=== PATIENT | female | born 1975 | race Caucasian/White ===

== ENCOUNTER 2021-01-11 16:39 | Outpatient (CLI) | payer BC, SELFPAY ==
[2021-01-11 17:23] LABS: Beta HCG Quantitative < 2.39 mIU/ML
[2021-01-11 17:37] LABS: Thyroid Stimulating Hormone 0.799 uIU/mL (0.465-4.680)
[2021-01-11 17:40] LABS: Free T4 Free Thyroxine 1.25 ng/mL (0.78-2.19)
[2021-01-15 07:47] LABS: Prolactin 13.6 ng/mL (***)
== END 2021-01-11 16:40 | disposition home or self-care (01) ==
PROVIDERS: Visit Provider Nurse Practitioner
DX: N93.8 Other specified abnormal uterine and vaginal bleeding (principal)
CPT/HCPCS: 36415; 84146; 84439; 84443; 84702

== ENCOUNTER → 2021-01-11 16:59 | Outpatient (CLI) | payer BC, SELFPAY ==
--- NOTE | ~2021-01-11 | US_ITS ---
EXAMINATION: US transvaginal DATE: 01/11/2021 17:26 INDICATION: Abnormal uterine bleeding TECHNIQUE: Multiple endovaginal sonographic images of the pelvis were obtained. COMPARISON: None. FINDINGS: The uterus measures 6 x 4.5 x 5.2 cm. There is a 2.3 cm isoechoic lesion in the posterior u terine body which has the appearance of an intramural fibroid. The endometrial complex measures 4 mm. The ovaries are not visualized however no adnexal abnormality is seen. There is no free fluid in the pelvis. IMPRESSION: 1. No sonographic correlate for the patient's symptoms. Reviewed, dictated and finalized at location A.
== END ==
PROVIDERS: Visit Provider Nurse Practitioner
DX: N93.8 Other specified abnormal uterine and vaginal bleeding (principal)
CPT/HCPCS: 76830

== ENCOUNTER → 2021-09-30 16:23 | Outpatient (CLI) | payer BC, SELFPAY ==
--- NOTE | ~2021-09-30 | XR_ITS ---
EXAM: XR abdomen/kub 1V DATE: 10/01/2021 11:38 HISTORY: Flank pain . COMPARISON: None available. FINDINGS: Clear lung bases. Normal bowel gas pattern. No organomegaly. Pelvic phleboliths. Regional bones and soft tissues normal for age. IMPRESSION: No radiographic evidence of obstruction or ileus. Reviewed, dictated and finalized at location K.
== END ==
PROVIDERS: PCP Nurse Practitioner Family; Visit Provider Nurse Practitioner Family
DX: R10.9 Unspecified abdominal pain (principal)
CPT/HCPCS: 74018

== ENCOUNTER 2022-06-26 16:28 | Emergency (ER) | payer BC, SELFPAY ==
[2022-06-26 16:40] VITALS: BP 181/97; PULSE 83; RESP 16; TEMP 36.2; O2SAT 100
[2022-06-26 16:42] VITALS: BP 181/97; PULSE 83; RESP 16; TEMP 36.2; O2SAT 100
--- NOTE | 2022-06-26 16:54 | ED.EAR ---
HPI - Ear Problem General Chief complaint: Ear Stated complaint: bilateral ear pain Source: patient Mode of arrival: ambulatory Limitations: no limitations History of Present Illness HPI Narrative: 47-year-old female presents to [facility] with complaints of bilateral ear pain, swelling to bilateral preauricular regions intermittently for the past few days. Patient reports that she finished a round of amoxicillin and Medrol Dosepak approximately for 3-5 days ago from her primary care provider for sinus infection. Patient reports that she has long history of ear issues and sinus infections and reports that she had sinus surgery in the past. Patient reports that she is leaving to go out of town in next few days and wanted make sure everything was okay. Patient denies fever, body aches, chills, nausea, vomiting, diarrhea, weight loss, night sweats. Patient reports that she has seen ENT in the past but is not currently established local ENT provider MD Complaint: ear pain Location: bilateral Duration: constant Severity: mild Relieving factors: nothing Exacerbating factors: nothing Treatment prior to arrival: none Related Data Home Medications Medication Instructions Recorded Confirmed atorvastatin 10 mg tablet 10 mg PO DAILY 06/26/22 06/26/22 cyclobenzaprine 10 mg tablet 10 mg PO DAILY 06/26/22 06/26/22 lisinopril 10 mg tablet 10 mg PO DAILY 06/26/22 06/26/22 metformin 500 mg tablet 500 mg PO DAILY 06/26/22 06/26/22 norethindrone acetate 1.5 1 tablet PO DAILY 06/26/22 06/26/22 mg-ethinyl estradiol 30 mcg tablet (Junel) oxybutynin chloride 5 mg tablet 5 mg PO DAILY 06/26/22 06/26/22 sertraline 100 mg tablet 100 mg PO DAILY 06/26/22 06/26/22 zolpidem 12.5 mg tablet,extended 12.5 mg PO DAILY 06/26/22 06/26/22 release,multiphase Allergies Allergy/AdvReac Type Severity Reaction Status Date / Time No Known Allergies Allergy Verified 06/26/22 16:40 Review of Systems Constitutional: Constitutional: Denies chills, Denies fatigue, Denies fever(s) and Denies weakness ENT: Denies vertigo, Denies dizziness, Denies epistaxis and Denies nasal congestion Comments: Bilateral ear pain Cardiovascular: Cardiovascular: Denies chest pain Respiratory: Respiratory: Denies chest congestion, Denies cough, Denies dyspnea and Denies wheezing Gastrointestinal: Gastrointestinal: Denies diarrhea, Denies nausea and Denies vomiting Genitourinary: Genitourinary: Denies hematuria and Denies nocturia Musculoskeletal: Musculoskeletal: Denies arthralgias and Denies joint swelling Integumentary/Breasts: Skin/Breast: Denies rash Neurologic: Denies vertigo, Denies dizziness, Denies syncope and Denies headache(s) PMFSH Comments At time of signature, I agree with nursing past medical, surgical, social and family history. There is no relevant family history pertinent to the presenting complaint. Exam Const: General: healthy appearing and no acute distress Nutritional Appearance: well nourished Orientation/consciousness: patient oriented x3 Limitations: no limitations HENMT: Head: normal to inspection Ears: external ears normal and TM's normal bilaterally Face/Nose/Sinus: Normal external nose present and Normal nares present Face and sinus: normal facial exam Mouth: Yes Normal oral and palatal mucosa present and Yes moist mucous membranes Teeth and gingiva: dentition normal Throat: posterior oropharynx normal and uvula midline Other: Mild swelling noted to bilateral preauricular regions. There is no obvious lymphadenopathy noted Eyes: Conjunctivae: conjunctivae normal Neck: Neck: normal visual inspection, no lymphadenopathy and no meningeal signs Resp: Effort & Inspection: normal respiratory effort, not labored and no retractions Auscultation: clear to auscultation bilaterally, no crackles, no rales, no rhonchi and no wheezes Cardio: Rate: regular rate Rhythm: regular rhythm Heart sounds: no murmurs Skin: General skin e
== END 2022-06-26 17:13 | disposition home or self-care (01) ==
PROVIDERS: Emergency Provider Nurse Practitioner Family; PCP Family Medicine
DX: R60.9 Edema, unspecified (principal)
CPT/HCPCS: 99213; G0463

== ENCOUNTER 2022-08-11 10:28 | Outpatient (CLI) | payer BC, SELFPAY ==
--- NOTE | ~2022-08-11 | US_ITS ---
EXAMINATION: US soft tissue head and neck DATE: 08/11/2022 10:53 INDICATION: Cervical lymphadenopathy. TECHNIQUE: Multiple grayscale and Doppler ultrasound images of the neck were obtained. COMPARISON: None FINDINGS: There is a mildly enlarged left submandibular node measuring 2.3 x 1.2 cm. There are normal sized lymph nodes in right neck. IMPRESSION: 1. Mildly enlarged left submandibular lymph node, most likely reactive as an isolated finding. Reviewed, dictated and finalized at location E. IMPRESSION: 1. Mildly enlarged left submandibular lymph node, most likely reactive as an is olated finding.
== END 2022-08-11 10:29 ==
PROVIDERS: PCP Nurse Practitioner Family; Visit Provider Nurse Practitioner Family
DX: R59.0 Localized enlarged lymph nodes (principal)
CPT/HCPCS: 76536

== ENCOUNTER → 2022-08-17 12:44 | Outpatient (CLI) | payer BC, SELFPAY ==
--- NOTE | ~2022-08-17 | CT_ITS ---
CT scan of the Neck Technique: 2.5 mm axial scans were obtained through the neck after intravenous administration of 75 c c Omnipaque 350. Coronal and sagittal reconstructions of the neck were obtained. Dose reduction techn ique was used on this scan by utilizing automated exposure control and iterative reconstruction techn ique. The dose-length product (DLP) was 409.06 mGy-cm. Clinical History: Submandibular lymphadenopathy Findings: There are mildly prominent bilateral cervical lymph nodes, predominantly at level 2. Shotty bilateral submandibular lymph nodes are present, not enlarged by size criteria. Parapharyngeal spaces appear n ormal bilaterally. The parotid and submandibular glands appear normal. The pharyngeal mucosal spaces appear normal. No soft tissue masses are seen in the neck. The thyroid gland appears normal. Images of the lung apices reveal no abnormalities. There is mild bi lateral maxillary and bilateral ethmoid sinus disease. There is retention cyst or polyp in the left s phenoid sinus. Impression: Mildly prominent lymph nodes bilaterally in the neck, as detailed above. This could reflect nonspecif ic lymphadenitis or other reactive lymph nodes. Mild sinus disease, as above. Reviewed, dictated and finalized at location M. Impression: Mildly prominent lymph nodes bilaterally in the neck, as detailed above. This c ould reflect nonspecific lymphadenitis or other reactive lymph nodes. Mild sinus disease, as above.
[2022-08-17 13:58] LABS: Estimated Glomerular Filt Rate > 60
== END ==
PROVIDERS: PCP Nurse Practitioner Family; Visit Provider Nurse Practitioner Family
DX: R59.0 Localized enlarged lymph nodes (principal); J32.9 Chronic sinusitis, unspecified
CPT/HCPCS: 70491; Q9967

== ENCOUNTER 2022-09-21 10:20 | Outpatient (CLI) | payer BC, SELFPAY ==
--- NOTE | ~2022-09-21 | US_ITS ---
Procedure: Duplex Doppler examination of the bilateral carotids. Indication: Carotid bruit Technique: Real time, color-flow and pulse wave Doppler examination of the bilateral carotids was performed. Findings: Tovar scale ultrasonography of the right neck demonstrated no significant plaque. There was demonstrat ion of normal color-flow and Doppler waveforms within the right common, internal and external carotid arteries. The peak systolic velocities in the right common, internal and external carotid arteries w ere demonstrated to be 71 cm/sec, 79 cm/sec and 118 cm/sec respectively. The right ICA/CCA ratio was 0.8.The proximal right internal carotid artery demonstrates 0% stenosis relative to the normal distal artery lumen diameter. Tovar scale sonography of the left neck demonstrated no significant plaque. There was demonstration of normal color-flow and wave forms within the left common, internal and external carotid arteries. The peak systolic velocities in the left common, internal and external carotid arteries were demonstrate d to be 97cm/sec, 50 cm/sec and 91 cm/sec respectively. The left ICA/CCA ratio was 0.8. The proximal left internal carotid artery demonstrates 0% stenosis relative to the normal distal artery lumen diam eter. There was antegrade flow demonstrated in the bilateral vertebral arteries. Impression: No hemodynamically significant stenosis of the bilateral internal carotid arteries. Antegrade flow in the bilateral vertebral arteries. Note: The methodology used is an indirect measurement validated against a direct method (such as the NASCET criteria) that compares diameters at the stenosis to the distal ICA. Reviewed, dictated and finalized at location . Impression: No hemodynamically significant stenosis of the bilateral internal carotid arter ies. Antegrade flow in the bilateral vertebral arteries. Note: The methodology used is an indirect measurement validated against a direct meth od (such as the NASCET criteria) that compares diameters at the stenosis to the distal ICA.
--- NOTE | ~2022-09-21 | XR_ITS ---
XR chest 2V DATE: 09/21/2022 10:52 INDICATION: Right carotid bruit. Palpable thyroid gland. TECHNIQUE: 2 views COMPARISON: None FINDINGS: Normal heart size. No hilar or mediastinal enlargement. No pulmonary infiltrate or consolid ation, pleural effusion or pulmonary vascular congestion or pneumothorax. Included skeletal structures are unremarkable. IMPRESSION: No active cardiopulmonary disease Reviewed, dictated and finalized at location L.
--- NOTE | ~2022-09-21 | US_ITS ---
Thyroid ultrasound. Clinical History: Palpable thyroid gland, thyroid nodule Findings: Real-time sonography of the thyroid gland was performed. The right lobe measures 4.4 x 1.5 x 1.4 cm. The left lobe measures 4.1 x 1.2 x 1.3 cm. The isthmus is 3 mm in AP diameter. There is a 5 mm hypoechoic nodule in the right upper pole. Impression: Subcentimeter right thyroid nodule, as above, for which no further follow-up is required.. Reviewed, dictated and finalized at location M. Impression: Subcentimeter right thyroid nodule, as above, for which no further follow-up is required..
== END 2022-09-21 10:21 ==
PROVIDERS: PCP Internal Medicine; Visit Provider Internal Medicine
DX: R09.89 Other specified symptoms and signs involving the circulatory and respiratory systems (principal); E04.1 Nontoxic single thyroid nodule
CPT/HCPCS: 71046; 76536; 93880

== ENCOUNTER 2022-11-16 14:35 | Outpatient (CLI) | payer BC, SELFPAY ==
--- NOTE | 2022-11-16 | ECHO_ITS ---
Patient Info Name: Traci Casas Age: 47 years : 1975 Gender: Female Ht: 64 in Wt: 215 lbs BSA: 2.14 m2 HR: 79 bpm BP: 171 / 105 mmHg Technical Quality: Fair Exam Date: 11/16/2022 3:08 PM Exam Location: [facility] Patient Status: Outpatient Admit Date: 11/16/2022 Staff Ordering Physician: PatricaJared MD Undercover Cop: Marilee Gurrola RDCS Attending Provider: TejasJared MD Exam Type: CA echo doppler color flow Study Info Indications - COUGH MURMUR Complete two-dimensional, color flow and Doppler transthoracic echocardiogram is performed. Summary 1. Complete two-dimensional, color flow and Doppler transthoracic echocardiogram is performed. 2. Left ventricular chamber dimension is normal. 3. Left ventricular systolic function is normal, estimated at 65-70%. 4. The left ventricular diastolic function is grade I diastolic dysfunction. 5. E/e' 7 is not elevated. 6. There is trace aortic valve regurgitation. 7. There is trace mitral valve regurgitation. 8. There is trace tricuspid valve regurgitation. 9. No pulmonary hypertension, estimated pulmonary arterial systolic pressure is 37 mmHg. Left Ventricle E/e' 7 is not elevated. Left ventricular chamber dimension is normal. Left ventricular systolic function is normal, estimated at 65-70%. The left ventricular diastolic function is grade I diastolic dysfunction. Right Ventricle Right ventricular chamber dimension is normal. Right ventricular systolic function is normal. Left Atria Left atrial chamber dimension is normal. Right Atria Right atrial chamber dimension is normal. Aortic Valve The aortic valve is trileaflet. There is no aortic valve stenosis. There is trace aortic valve regurgitation. Pulmonic Valve There is no pulmonic regurgitation. Mitral Valve There is no mitral valve stenosis. There is trace mitral valve regurgitation. Tricuspid Valve There is trace tricuspid valve regurgitation. No pulmonary hypertension, estimated pulmonary arterial systolic pressure is 37 mmHg. Pericardium/Pleural There is no pericardial effusion. Inferior Vena Cava Normal inferior vena cava with >50% collapse upon inspiration consistent with normal right atrial pressure, 5 mmHg. Aorta The aortic root size at the sinus of Valsalva is normal. Left Ventricular Outflow Tract Name Value Normal LVOT 2D LVOT Diameter 2.0 cm LVOT Doppler LVOT Peak Gradient 7 mmHg LVOT Mean Gradient 4 mmHg LVOT VTI 28 cm LVOT VTI/AV VTI Ratio 1.0 LVOT Stroke Volume 87 ml LVOT CO 18.6 l/min LVOT CI 8.7 l/min/m2 Pulmonic Valve Name Value Normal RVOT Doppler RVOT Peak Gradient 3 mmHg PV Doppler
== END 2022-11-16 14:36 | disposition home or self-care (01) ==
PROVIDERS: PCP Internal Medicine; Visit Provider Internal Medicine
DX: R05.3 Chronic cough (principal); R06.2 Wheezing; R01.1 Cardiac murmur, unspecified
CPT/HCPCS: 93306

== ENCOUNTER 2023-01-14 08:24 | Emergency (ER) | payer BC, SELFPAY ==
--- NOTE | ~2023-01-14 | XR_ITS ---
EXAMINATION: XR ankle LT min 3V DATE: 01/14/2023 09:03 INDICATION: Left ankle pain TECHNIQUE: Anteroposterior, lateral, mortise, and additional oblique view of the ankle were obtained. COMPARISON: None. FINDINGS: There is lateral soft tissue swelling of ankle with tiny avulsion injury at the distal aspe ct of the lateral malleolus. Bone alignment is normal. No additional fracture is identified. IMPRESSION: 1. Tiny avulsion injury at the distal aspect of the lateral malleolus with lateral soft tissue swelli ng of ankle. Reviewed, dictated and finalized at location F. IMPRESSION: 1. Tiny avulsion injury at the distal aspect of the lateral malleolus with late ral soft tissue swelling of ankle.
[2023-01-14 08:55] VITALS: BP 150/107; PULSE 93; RESP 18; TEMP 36.3; O2SAT 99
[2023-01-14] MEDS: IBUPROFEN 600 MG TABLET PO (09:14)
[2023-01-14 09:24] VITALS: BP 156/106; PULSE 93; RESP 18; O2SAT 96
--- NOTE | 2023-01-14 09:28 | ED.LOWEXIN ---
HPI - Extremity Injury (Lower) General Chief Complaint: Extremity Injury, Lower Stated Complaint: left ankle injury Time Seen by Provider: 01/14/23 08:43 Source: patient and RN notes reviewed Mode of arrival: ambulatory Limitations: no limitations History of Present Illness HPI Narrative: This is a 47 year old female who presents for evaluation of left ankle pain. She states last night around 7 30 pm she accidentally stepped in a hole causing her to injury her left ankle. She reports pain with walking and ankle pain. She took ibuprofen at 3 am for her pain. She rates pain 4/10 at rest and it is worse with ambulation. She denies any other injury. She denies hitting her head Related Data Home Medications Medication Instructions Recorded Confirmed atorvastatin 10 mg tablet 10 mg PO DAILY 06/26/22 11/08/22 cyclobenzaprine 10 mg tablet 10 mg PO DAILY 06/26/22 11/08/22 metformin 500 mg tablet 500 mg PO DAILY 06/26/22 11/08/22 norethindrone acetate 1.5 1 tablet PO DAILY 06/26/22 11/08/22 mg-ethinyl estradiol 30 mcg tablet (Junel) sertraline 100 mg tablet 100 mg PO DAILY 06/26/22 09/21/22 zolpidem 12.5 mg tablet,extended 12.5 mg PO DAILY 06/26/22 09/21/22 release,multiphase losartan 50 mg tablet 50 mg PO DAILY 09/21/22 11/08/22 Allergies Allergy/AdvReac Type Severity Reaction Status Date / Time No Known Allergies Allergy Verified 01/14/23 08:59 Review of Systems Review of Systems: All systems reviewed & are unremarkable except as noted in HPI and below PMFSH Past Medical History Medical History (Updated 01/14/23 @ 09:36 by Elida Conway MD) Anxiety Diabetes Hypertension Family History Family History Father Cerebrovascular accident Mother Hypertension Disorder of thyroid Sibling Hypertension Depression Social History Social History Smoking status: Never smoker Alcohol intake: current Lack of Transportation: No Lack of Food: Never True Current Housing: I Have Housing Concerned About Future Housing: No Difficulty Paying Gas/Electric Bills: No Difficulty Paying for Meds: No Currently Unemployed: No Education: Associate Degree Difficulty w/ Childcare or Family Care: No Exam Const: General: no acute distress and alert Nutritional Appearance: well nourished Orientation/consciousness: patient oriented x3 HENMT: Head: normal to inspection Eyes: EOM: EOMs intact bilaterally Resp: Effort & Inspection: normal respiratory effort Cardio: Other: normal pedal pulse Skin: Other: abrasion to left lateral ankle, left lateral malleolus swelling and tenderness, no erythema, no bruising. Neuro: General: patient oriented x3, moves all extremities and CN's II-XI intact bilaterally Psych: Mental Status: mental status grossly normal Affect: normal affect Attitude: cooperative Course Reevaluation(s) Reevaluation #1: I Discussed with patient xray shows avulsion injury to her ankle. We discussed management with splint vs walking boot. She states she will go get walking boot. We will place lucretia bandage and given crutches. I Discussed follow up with ortho. She was given ibuprofen for pain 600 mg Date: 01/14/23 Time: 09:28 Vital Signs Vital signs: Vital Signs Temperature 97.3 F L 01/14/23 08:55 Pulse Rate 93 01/14/23 08:55 Respiratory Rate 18 01/14/23 08:55 Blood Pressure 150/107 H 01/14/23 08:55 Pulse Oximetry 99 01/14/23 08:55 Oxygen Delivery Room Air 01/14/23 08:55 Temperature 97.3 F L 01/14/23 08:55 Pulse Rate 93 01/14/23 09:24 Respiratory Rate 18 01/14/23 09:24 Blood Pressure 156/106 H 01/14/23 09:24 Pulse Oximetry 96 01/14/23 09:24 Oxygen Delivery Room Air 01/14/23 08:55 MDM - Extremity Injury (Lower) Differential Diagnosis Differential diagnosis: Likely ankle sprain and strain and a
== END 2023-01-14 10:07 | disposition home or self-care (01) ==
PROVIDERS: Emergency Provider General Practice; PCP Internal Medicine
DX: S82.62XA Displaced fracture of lateral malleolus of left fibula, initial encounter for closed fracture (principal); E11.9 Type 2 diabetes mellitus without complications; I10 Essential (primary) hypertension; F41.9 Anxiety disorder, unspecified; Z79.84 Long term (current) use of oral hypoglycemic drugs; X50.9XXA Other and unspecified overexertion or strenuous movements or postures, initial encounter
CPT/HCPCS: 73610; 99284; A9270

== ENCOUNTER 2023-12-28 09:36 | Outpatient (CLI) | payer BC, SELFPAY ==
--- NOTE | ~2023-12-28 | US_ITS ---
EXAMINATION: US pelvic complete w TV DATE: 12/28/2023 10:01 INDICATION: Enteritis with excessive and irregular menstruation TECHNIQUE: Multiple transabdominal and endovaginal sonographic images of the pelvis were obtained. COMPARISON: None. FINDINGS: The uterus measures 6.3 x 2.9 x 4.4 cm. The endometrial complex measures 3-4 mm in thickness. 1.5 cm hypoechoic uterine fibroid at the left posterior uterus. Small anechoic nabothian cysts at the cervi x measuring up to 1.5 cm. The right ovary measures 3.1 x 2.5 x 1.1 cm. 1.4 cm anechoic right ovarian cyst/follicle. The left ovary measures 2.1 x 1.9 x 1.6 cm. There is normal vascular flow in the ovari es. There is no free fluid in the pelvis. IMPRESSION: 1. 1.5 cm uterine fibroid. 2. A few nabothian cysts at the cervix and 1.4 cm anechoic cyst/follicle at the right ovary. Reviewed, dictated and finalized at location B.
== END 2023-12-28 09:37 | disposition home or self-care (01) ==
PROVIDERS: PCP Family Medicine; Visit Provider Nurse Practitioner Family
DX: N92.0 Excessive and frequent menstruation with regular cycle (principal); D25.9 Leiomyoma of uterus, unspecified; N83.201 Unspecified ovarian cyst, right side
CPT/HCPCS: 76830; 76856

== ENCOUNTER 2024-04-28 07:56 | Outpatient (CLI) | payer BC, SELFPAY ==
--- NOTE | ~2024-04-28 | MM_ITS ---
EXAMINATION: MM screening clara BI w flako HISTORY: Screening mammogram TECHNIQUE: Craniocaudal and mediolateral oblique 3-D tomosynthesis images were obtained and synthetic 2-D images were generated. CAD analysis was submitted and interpreted. COMPARISON: 12/12/2018 BREAST PARENCHYMAL COMPOSITION:Not Dense. There are scattered areas of fibroglandular density. FINDINGS: There is a 2 cm upper, outer right breast mass, new from prior exam. Spot compression views and ultrasound are recommended for further evaluation. Stable parenchymal pattern of the left breast . IMPRESSION: 2 cm upper, outer right breast mass, new from prior exam. Spot compression views and ultrasound are recommended for further evaluation. BI-RADS Category 0: Incomplete: Needs additional imaging evaluation. Reviewed, dictated and finalized at location . 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 Spot compression vie ws and ultrasound are recommended for further evaluation. BI-RADS Category 0: Incomplete: Needs additional imaging evaluation.
== END 2024-04-28 07:57 | disposition home or self-care (01) ==
LOC: ANHIMG 07:58
PROVIDERS: PCP Family Medicine; Visit Provider Nurse Practitioner Family
DX: Z12.31 Encounter for screening mammogram for malignant neoplasm of breast (principal); R92.8 Other abnormal and inconclusive findings on diagnostic imaging of breast
CPT/HCPCS: 77063; 77067

== ENCOUNTER 2024-05-06 13:12 | Outpatient (CLI) | payer BC, SELFPAY ==
--- NOTE | ~2024-05-06 | MMUS_ITS ---
EXAMINATION: US breast RT limited, MM diagnostic clara RT w flako HISTORY: Follow-up right breast mass TECHNIQUE: Additional 3-D tomosynthesis images of the right breast were performed and synthetic 2-D i mages were generated. CAD analysis was submitted and interpreted. High resolution Limited right breas t ultrasound was performed. COMPARISON: Comparison to multiple prior studies sequentially, with oldest reviewed study dated 10/30. BREAST PARENCHYMAL COMPOSITION: Dense: The breasts are heterogeneously dense, which may obscure small masses FINDINGS: MAMMOGRAPHIC FINDINGS: In the upper outer quadrant of the right breast there is a partially obscured mass, middle third. The re are no suspicious calcifications or architectural distortion. ULTRASOUND: Limited right breast ultrasound: There is an irregular shaped hypoechoic mass with parallel orientati on, subtle posterior acoustic enhancement and no internal vascularity. This mass measures 2.1 x 1.9 x 1.6 cm located at 10:00, 5 cm from the nipple. This corresponds to the mammographic finding. IMPRESSION: 1. Right breast mass with irregular margins located at 10:00, 5 cm from the nipple measuring up to 2. 1 cm. 2. Ultrasound-guided right breast biopsy recommended. BI-RADS category 4, suspicious findings. Reviewed, dictated and finalized at location A. 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 Right breast mass with irregular margins located at 10:00, 5 cm from the nip ple measuring up to 2.1 cm. 2. Ultrasound-guided right breast biopsy recommended. BI-RADS category 4, suspicious findings.
== END 2024-05-06 13:13 | disposition home or self-care (01) ==
PROVIDERS: PCP Family Medicine; Visit Provider Nurse Practitioner Obstetrics & Gynecology
DX: R92.8 Other abnormal and inconclusive findings on diagnostic imaging of breast (principal); N63.11 Unspecified lump in the right breast, upper outer quadrant
CPT/HCPCS: 76642; 77061; 77065; G0279

== ENCOUNTER 2024-05-21 08:30 | Outpatient (CLI) | payer BC, SELFPAY ==
--- NOTE | ~2024-05-21 | MMUS_ITS ---
US breast biopsy RT w image, MM post biopsy diagnostic RT EXAMINATION: US GUIDED NEEDLE BIOPSY WITH VACUUM ASSISTANCE DATE: 05/21/2024 10:33 FOOD SERVICE TECHNICIAN INDICATION: Right breast mass demonstrated on recent examination. Ultrasound-guided core biopsy is r equested to evaluate for malignancy. BREAST PARENCHYMAL COMPOSITION: Dense: The breasts are heterogeneously dense, which may obscure small masses TECHNIQUE AND FINDINGS: The risks and potential benefits of the procedure were discussed with the patient, and written inform ed consent was obtained. After sterile preparation of the right breast, 1% lidocaine was utilized fo r local anesthesia. 1% lidocaine with epinephrine was used for deep anesthesia. A 10G vacuum-assisted biopsy gun needle was advanced through to the outer edge of the region of inter est from a superior approach utilizing sonographic guidance. A total of 4 tissue core samples were o btained through the lesion. An Inrad tissue marker clip was then placed at the biopsy site. Hemostas is was achieved. The patient tolerated procedure well and there was no evidence of immediate complication. The patien t was given verbal instructions partly is from the department. Right breast mammograms to document t issue marker clip placement. The tissue samples were submitted to surgical pathology for histologic a nalysis. IMPRESSION: 1. Successful ultrasound-guided vacuum-assisted biopsy of right breast mass with post procedure mamm ogram for marker placement. Please refer to pathology report for histologic analysis. Reviewed, dictated and finalized at location B. SERVICE TECHNICIAN IMPRESSION: 1. Successful ultrasound-guided vacuum-assisted biopsy of right breast mass wi th post procedure mammogram for marker placement. Please refer to pathology rep ort for histologic analysis.
--- OUTSIDE RECORDS SUMMARY | 2024-05-21 08:48 | XMS_ITS | Clinical Summary ---
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 Name Role Phone Unavailable Primary Care Provider Unavailabl e Social History Tobacco Use Types Packs/Day Years Used Date Smoking Tobacco: Never Assessed Comments Unknown Sex and Gender Information Value Date Recorded Sex Assigned at Not on file Legal Sex Female 4:40 PM CDT Gender Identity Not on file Sexual Orientation Not on file Last Filed Vital Signs Vital Sign Reading Time Taken Comments Blood Pressure 120/64 02/10/2015 5:03 PM CDT Pulse 79 10/18/2012 4:30 PM CDT Temperature - - Respiratory Rate - - Oxygen Saturation - - Inhaled Oxygen Concentration - - Weight 95.3 kg (210 lb) 02/10/2015 5:03 PM CDT Height 162.6 cm (5' 4 ) 02/10/2015 5:03 PM CDT Body Mass Index 36.05 02/10/2015 5:03 PM CDT Plan of Treatment Health Maintenance Due Date Last Done Comments Cervical Cancer Screening Pa p Smear (Age 30 to 64) Every 3 Years 1975 Colorectal Cancer Screening Colonoscopy (10 Years) 1975 Annual Physical 1978 Hepatitis C 1993 DTaP, Tdap and Td Vaccines ( 1 - Tdap) 1994 Hepatitis B Vaccines (1 of 3 - 19+ 3-dose series) 1994 Cervical Cancer Screening Pa p with HPV Testing (Age 30 to 64) Every 5 Years 2005 Cervical Cancer Screening with HPV 2005 Mammogram Screening 2015 COVID-19 Vaccine (2023-2 5 season) 2023 Influenza Adult (#1) 2024 Meningococcal B Vaccine Aged Out No l onger eligible based on patient's age to complete this topic Meningococcal Vaccine Aged Out No rian yanni eligible based on patient's age to complete this topic Pneumococcal Vaccine: Pediat rics (0 to 5 Years) and At-Risk Patients (6 to 64 Years) Aged Out No longer eligible b ased on patient's age to complete this topic RSV Immunizations Under 20 Months Aged Out No longer eligible based on patient's age to complete this topic
--- OUTSIDE RECORDS SUMMARY | 2024-05-21 08:48 | XMS_ITS | Data Portability ---
Author Organization [facility] Exam18, Main Office Address [address] [place] [address] Care Team Providers Care Post Closer Name Role Phone MITA NINO Primary Care Provider [phone] MITA NINO Referring Provider [phone] Assessment No assessment recorded. Plan of Treatment Reminders Order Date Submit Date Provider Last Modified By Organization Details Last Modified Time Details Appointments None recorded. Lab CBC w/ diff 2022 023 [email or web address], [place], Operated [facility] - Outpatient Lab, [address] [place], [address], 3 08:20:32 Referral None recorded. Procedures None recorded. Surgeries None recorded. Imaging US, head + neck, soft tissue - cervical and supraclavic ular lymphadenop athy right face and neck. *Please call patient to schedule* [facility] [address], [address], [place], [address], 3 15:50:05 Medication Orders None recorded. Patient TargetsNo targets recorded. Patient Instructions Encounter Date Encounter Id Patient Instructions Last Modified By Organization Details Last Modified Time 08/09/2022 [id number] 2 week fu right neck and face swelling. log fasting glucose and bp. [email or web address] Not available 08/09/2022 16:30:19 Reason for Referral None Reported. Results Created Date Observation Date Name Description Value Unit Range Abnormal Flag Note LastModifiedBy Organization Detail LastModifiedTime 09/30/19 22 09/29/2021 urina lysis , dipst ick Leukocytes (reference range: negative jackelyn/? ? ?l) Negati ve Not Available [facility] [address] [place] [address], [phone], 09/29/2021 18:22:36 09/30/19 22 09/29/2021 urina lysis , dipst ick Nitrite (reference rage: negative mg/dl) negati ve Not Available [address], [address], 09/29/2021 18:22:36 09/30/19 22 09/29/2021 urina lysis , dipst ick Urobilinogen (reference range: 0.2-1 mg/dl) 0.2 Not Available [facility] [address] [place] [address], [phone], 09/29/2021 18:22:36 09/30/19 22 09/29/2021 urina lysis , dipst ick Protein (reference range: negative mg/dl) Trace Not Available [address], [address], 09/29/2021 18:22:36 09/30/19 22 09/29/2021 urina lysis , dipst ick pH (reference range: 5-7) 5.0 Not Available [address], [address], 09/29/2021 18:22:36 09/30/19 22 09/29/2021 urina lysis , dipst ick Blood (reference range: negative [place]/? ? ?l) Modera te Not Available [address], [address], 09/29/2021 18:22:36 09/30/19 22 09/29/2021 urina lysis , dipst ick Specific [place] (reference range: 1.005-1.030) 1.015 Not Available [facility] [address] [place] [address], [address], 09/29/2021 18:22:36 09/30/19 22 09/29/2021 urina lysis , dipst ick Ketone (reference range: negative mg/dl) Small Not Available [facility] [address], [address], 09/29/2021 18:22:36 09/30/19 22 09/29/2021 urina lysis , dipst ick Bilirubin (reference range: negative mg/dl) Negati ve Not Available [facility], [address], 09/29/2021 18:22:36 09/30/19 22 09/29/2021 urina lysis , dipst ick Glucose (reference range: negative mg/dl) 2000+ Not Available [facility], [address], 09/29/2021 18:22:36 09/30/19 22 09/29/2021 urina lysis , dipst ick Appearance Clear Not Available [facility] _[address], [address], 09/29/2021 18:22:36 09/30/19 22 09/29/2021 urina lysis , dipst ick Color Dark Yellow Not Available [facility], [address], 09/29/2021 18:22:36 10/01/19 22 09/30/2021 CULTU RE URINE urc ===== ===== ===== ===== ===== ===== ===== ===== ===== ===== ===== ===== ===== ===== ===== ===== ===== ===== ===== ===== ===== ===== ===== ===== CULTU RE NO.: [id number] Exam Statu s: Final Exam Type: CULTU RE URINE ===== ===== ===== ===== ===== ===== ===== ===== ===== ===== ===== ===== ===== ===== ===== ===== ===== ===== ===== ===== ===== ===== ===== ===== Cultu re Repor t: Organ ism #01 Esche zain a coli (escc ol) Antib iotic s escco l Achie vable Achie vable (01) Dosag e Serum Level Urine Level mcg/m l mcg/m l AMIKA GLADYS <=2 S 000D Ampic illin /Sulb actam <=2 S 000D Cefaz carolann <=4 S 000D Cefep luciano <=1 S 000D Cefox itin <=4 S 000D Cefta zidim e <=1 S 000D Ceftr iaxon e <=1 S 000D Cipro floxa gladys <=0.2 5 S 000D ESBL NEG - 000D Genta micin <=1 S 000D Levof loxac in <=12 S 000D Merop enem <=0.2 5 S 000D Piper acill in/Ta zobac <=4 S 000D Tobra mycin <=1 S 000D Trime thopr im/Mcdowell lfame <=20 S 000D af - Antib iotic Fami <=2 S 000D Nitro furan toin <=16 S 000D Not Available [facility] (Lab) [address] [place], [address], 10/02/2021 10:19:58 10/01/19 22 09/30/2021 HEMOG LOBIN A1C HA1C 8.7 % 4.0-6. 0 high Diabe klaus Stephanie Garcia russel: <5.7% Consi stent with absen ce of diabe klaus 5.7-6 .4% Consi stent with incre ased risk for diabe klaus (pred iabet es) >OR=6 .5% Consi stent with diabe klaus REFER ENCE: Diabe klaus Care 2016, 39(Mcdowell ppl.1 ):s13 -s22 Not Available [facility] (Lab) [address] [place], [address], 09/30/2021 21:00:14 10/01/19 22 09/30/2021 FOLAT E, SERUM /PLAS MA folate >20.0 NG/mL 2.76-2 0.0 Not Available [facility] (Lab) [address] [place], [address], 09/30/2021 17:12:42 10/01/19 22 09/30/2021 VITAM IN D 25-HY DROXY vd25oh 16.0 NG/mL 30-100 low Vitam in D Statu s: Defic ient: <20 ng/mL Insuf ficie nt: 20-29 ng/mL Suffi cient : 30-10 0 ng/mL Not Available [facility] (Lab) [address] [place], [address], 09/30/2021 16:24:13 10/01/19 22 09/30/2021 VITAM IN B12 (EDEL MARCUS ) vb12 493 pg/mL 239-93 1 Not Available [facility] (Lab) [address] [place], [address], 09/30/2021 14:52:55 10/01/19 22 09/30/2021 TSH W/REF CORINA FT4 TSH with reflex free T4 0.795 uIU/m L 0.465- 4.680 Not Available [facility] (Lab) [address] [place], [address], 09/30/2021 14:41:43 10/01/19 22 09/30/2021 LIPID PANEL cholesterol 209 mg/dL 140-19 9 high NIH UZAIR NSUS RECOM MENDA TION FOR IGOR STERO L: ADULT CHILD LOW RISK: <200 <170 BORDE RLINE : <200- 239 ----- HIGH RISK: >240 >200 Not Available [facility] (Lab) [address] [place], [address], 09/30/2021 14:18:48 10/01/19 22 09/30/2021 LIPID PANEL triglyceride s 364 mg/dL 0-150 high NIH UZAIR NSUS REPOR T RECOM MENDA TION FOR TRIGL YCERI VIVEK: ADULT CHILD LOW RISK: <150 ----- BODER LINE: 150-1 99 ----- HIGH RISK: >200 ----- Not Available [facility] (Lab) [address] [place], [address], 09/30/2021 14:18:48 10/01/19 22 09/30/2021 LIPID PANEL HDL cholesterol 41 mg/dL 40- Not Available [facility] (Lab) [address] [place], [address], 09/30/2021 14:18:48 10/01/19 22 09/30/2021 LIPID PANEL LDL cholesterol, calculated 95 mg/dL 0-130 NIH UZAIR NSUS REPOR T RECOM MENDA TIONS FOR LDL: ADULT CHILD LOW RISK <130 <110 (OPTI MAL LDL) <100 ----- BORDE RLINE : 130-1 59 ----- HIGH RISK: >160 >130 A TRIGL YCERI DE RESUL T >400 INVAL IDATE S THE CALCU LATIO N FOR LDL FRACT IONAT ION - THE LDL RESUL T WILL NOT BE REPOR JENNIFER. Not Available [facility] (Lab) [address] [place], [address], 09/30/2021 14:18:48 10/01/19 22 09/30/2021 COMPR EHENS NERY METAB OLIC PANEL sodium 137 mmol/ L 137-14 5 Not Available [facility] (Lab) [address] [place], [address], 09/30/2021 14:18:42 10/01/19 22 09/30/2021 COMPR EHENS NERY METAB OLIC PANEL potassium 4.4 mmol/ L 3.5-5. 1 Not Available [facility] (Lab) [address] [place], [address], 09/30/2021 14:18:42 10/01/19 22 09/30/2021 COMPR EHENS NERY METAB OLIC PANEL chloride 104 mmol/ L 98-107 Not Available [facility] (Lab) [address] [place], [address], 09/30/2021 14:18:42 10/01/19 22 09/30/2021 COMPR EHENS NERY METAB OLIC PANEL carbon dioxide 21 mmol/ L 22-30 low Not Available [facility] (Lab) [address] [place], [address], 09/30/2021 14:18:42 10/01/19 22 09/30/2021 COMPR EHENS NERY METAB OLIC PANEL anion gap 16.4 mmol/ L 14-22 Not Available [facility] (Lab) [address] [place], [address], 09/30/2021 14:18:42 10/01/19 22 09/30/2021 COMPR EHENS NERY METAB OLIC PANEL glucose 200 mg/dL 70-99 high Not Available [facility] (Lab) [address] [place], [address], 09/30/2021 14:18:42 10/01/19 22 09/30/2021 COMPR EHENS NERY METAB OLIC PANEL BUN 9 mg/dL 8-19 Not Available [facility] (Lab) [address] [place], [address], 09/30/2021 14:18:42 10/01/19 22 09/30/2021 COMPR EHENS NERY METAB OLIC PANEL creatinine 0.55 mg/dL 0.66-1 .25 low Not Available [facility] (Lab) [address] [place], [address], 09/30/2021 14:18:42 10/01/19 22 09/30/2021 COMPR EHENS NERY METAB OLIC PANEL GFR >60 Refer ence Range : [place] ge GFR Healt hy Adult : >60 mL/mi n/1.7 3 m2 Chron ic Kidne y Disea se: 15-60 mL/mi n/1.7 3 m2 Kidne y Failu re: <15/m L/min /1.73 m2 www.n iddk. nih.g ov The MDRD study equat ion has not been valid ated in child jose <18 years of age; pregn ant women ; the elder ly >85 years of age; or in some racia l or ethni c subgr oups, such as mn nics. Outsi de the valid ated itzel eters , estim ated GFR is less accur ate, requi ring clini dana judgm ent on a case- by-ca se basis . Clini dana inter preta tion for other races and ages must be made by the clini margaret. The MDRD study equat ion has not been valid ated for the evalu ation of serum creat inine relat ed to nutri haley l statu s or medic ation usage . For perso ns <18 years of age, a pedia tric GFR calcu lator is avail able on the [facility] websi te: https ://felicia stephens.o alisa/pr ofess ional s/kdo qi/gf r_cal culat or Not Available [facility] (Lab) [address] [place], [address], 09/30/2021 14:18:42 10/01/19 22 09/30/2021 COMPR EHENS NERY METAB OLIC PANEL alkaline phosphatase 94 U/L 38-126 Not Available [facility] (Lab) [address] [place], [address], 09/30/2021 14:18:42 10/01/19 22 09/30/2021 COMPR EHENS NERY METAB OLIC PANEL alanine aminotransfe rase 27 U/L 0-35 Not Available [facility] (Lab) [address] [facility] [place], [address], 09/30/2021 14:18:42 10/01/19 22 09/30/2021 COMPR EHENS NERY METAB OLIC PANEL aspartate aminotransfe rase 72 U/L 15-37 high Not Available [facility] (Lab) [address] [place], [address], 09/30/2021 14:18:42 10/01/19 22 09/30/2021 COMPR EHENS NERY METAB OLIC PANEL bilirubin, total 0.60 mg/dL 0.20-1 .30 Not Available [facility] (Lab) [address] [place], [address], 09/30/2021 14:18:42 10/01/19 22 09/30/2021 COMPR EHENS NERY METAB OLIC PANEL calcium 9.5 mg/dL 8.4-10 .2 Not Available [facility] (Lab) [address] [place], [address], 09/30/2021 14:18:42 10/01/19 22 09/30/2021 COMPR EHENS NERY METAB OLIC PANEL total protein 7.8 g/dL 6.3-8. 2 Not Available [facility] (Lab) [address] [place], [address], 09/30/2021 14:18:42 10/01/19 22 09/30/2021 COMPR EHENS NERY METAB OLIC PANEL albumin 4.2 g/dL 3.4-5. 0 Not Available [facility] (Lab) [address] [place], [address], 09/30/2021 14:18:42 10/01/19 22 09/30/2021 COMPR EHENS NERY METAB OLIC PANEL globulin 3.6 g/dL 2.6-4. 2 Not Available [facility] (Lab) [address] [place], [address], 09/30/2021 14:18:42 10/01/19 22 09/30/2021 COMPR EHENS NERY METAB OLIC PANEL A/G ratio 1.2 ratio 1.0-2. 0 Not Available [facility] (Lab) [address] [facility] [place], [address], 09/30/2021 14:18:42 10/01/19 22 09/30/2021 CBC/C OMPLE TE BLD COUNT W/DIF F white blood cells 8.4 x10'3 /uL 4.2-10 .8 Not Available [facility] (Lab) [address] [place], [address], 09/30/2021 13:50:39 10/01/19 22 09/30/2021 CBC/C OMPLE TE BLD COUNT W/DIF F red blood cells 4.53 x10'6 /uL 3.80-5 .20 Not Available [facility] (Lab) [address] [place], [address], 09/30/2021 13:50:39 10/01/19 22 09/30/2021 CBC/C OMPLE TE BLD COUNT W/DIF F hemoglobin 13.2 g/dL 12.0-1 5.6 Not Available [facility] (Lab) [address] [place], [address], 09/30/2021 13:50:39 10/01/19 22 09/30/2021 CBC/C OMPLE TE BLD COUNT W/DIF F hematocrit 39.1 % 35.7-4 5.7 Not Available [facility] (Lab) [address] [place], [address], 09/30/2021 13:50:39 10/01/19 22 09/30/2021 CBC/C OMPLE TE BLD COUNT W/DIF F mean red cell volume 86.3 fL 82.0-9 9.0 Not Available [facility] (Lab) [address] [place], [address], 09/30/2021 13:50:39 10/01/19 22 09/30/2021 CBC/C OMPLE TE BLD COUNT W/DIF F mean red cell hemoglobin 29.1 pg 27.0-3 3.0 Not Available [facility] (Lab) [address] [place], [address], 09/30/2021 13:50:39 10/01/19 22 09/30/2021 CBC/C OMPLE TE BLD COUNT W/DIF F mean RBC HGB concentratio n 33.8 g/dL 31.0-3 6.0 Not Available [facility] (Lab) [address] [place], [address], 09/30/2021 13:50:39 10/01/19 22 09/30/2021 CBC/C OMPLE TE BLD COUNT W/DIF F red cell distribution width 12.5 % 11.8-1 5.5 Not Available [facility] (Lab) [address] [place], [address], 09/30/2021 13:50:39 10/01/19 22 09/30/2021 CBC/C OMPLE TE BLD COUNT W/DIF F platelets 310 x10'3 /uL 150-40 0 Not Available [facility] (Lab) [address] [place], [address], 09/30/2021 13:50:39 10/01/19 22 09/30/2021 CBC/C OMPLE TE BLD COUNT W/DIF F mean platelet volume 11.3 fL 9.0-12 .4 Not Available [facility] (Lab) [address] [place], [address], 09/30/2021 13:50:39 10/01/19 22 09/30/2021 CBC/C OMPLE TE BLD COUNT W/DIF F neutrophils 64.1 % 39.0-7 2.0 Not Available [facility] (Lab) [address] [place], [address], 09/30/2021 13:50:39 10/01/19 22 09/30/2021 CBC/C OMPLE TE BLD COUNT W/DIF F lymphocytes 24.0 % 16.0-4 7.0 Not Available [facility] (Lab) [address] [place], [address], 09/30/2021 13:50:39 10/01/19 22 09/30/2021 CBC/C OMPLE TE BLD COUNT W/DIF F monocytes 5.4 % 5.0-12 .0 Not Available [facility] (Lab) [address] [place], [address], 09/30/2021 13:50:39 10/01/19 22 09/30/2021 CBC/C OMPLE TE BLD COUNT W/DIF F eosinophils 5.6 % 1.0-7. 0 Not Available [facility] (Lab) [address] [place], [address], 09/30/2021 13:50:39 10/01/19 22 09/30/2021 CBC/C OMPLE TE BLD COUNT W/DIF F basophils 0.7 % 0.0-2. 0 Not Available [facility] (Lab) [address] [place], [address], 09/30/2021 13:50:39 10/01/19 22 09/30/2021 CBC/C OMPLE TE BLD COUNT W/DIF F immature granulocytes 0.2 % 0.00-0 .50 Not Available [facility] (Lab) [address] [place], [address], 09/30/2021 13:50:39 10/01/19 22 09/30/2021 CBC/C OMPLE TE BLD COUNT W/DIF F neutrophils, absolute count 5.39 x10'3 /uL 1.5-8. 0 Not Available [facility] (Lab) [address] [place], [address], 09/30/2021 13:50:39 10/01/19 22 09/30/2021 CBC/C OMPLE TE BLD COUNT W/DIF F lymphocytes, absolute count 2.02 x10'3 /uL 1.07-3 .43 Not Available [facility] (Lab) [address] [place], [address], 09/30/2021 13:50:39 10/01/19 22 09/30/2021 CBC/C OMPLE TE BLD COUNT W/DIF F monocytes, absolute count 0.45 x10'3 /uL 0.29-0 .99 Not Available [facility] (Lab) [address] [place], [address], 09/30/2021 13:50:39 10/01/19 22 09/30/2021 CBC/C OMPLE TE BLD COUNT W/DIF F eosinophils, absolute count 0.47 x10'3 /uL 0.02-0 .53 Not Available [facility] (Lab) [address] [place], [address], 09/30/2021 13:50:39 10/01/19 22 09/30/2021 CBC/C OMPLE TE BLD COUNT W/DIF F basophils, absolute count 0.06 x10'3 /uL 0.01-0 .08 Not Available [facility] (Lab) [address] [place], [address], 09/30/2021 13:50:39 10/01/19 22 09/30/2021 CBC/C OMPLE TE BLD COUNT W/DIF F immature granulocytes ,absolute 0.02 x10'3 /uL 0.00-0 .05 Not Available [facility] (Lab) [address] [place], [address], 09/30/2021 13:50:39 10/01/19 22 09/30/2021 CBC/C OMPLE TE BLD COUNT W/DIF F nucleated red blood cells 0.0 % -0 Not Available [facility] (Lab) [address] [place], [address], 09/30/2021 13:50:39 10/01/19 22 09/30/2021 CBC/C OMPLE TE BLD COUNT W/DIF F NRBC# 0.00 x10'3 /uL Not Available [facility] (Lab) [address] [place], [address], 09/30/2021 13:50:39 06/13/19 23 06/13/2022 HEMOG LOBIN A1C HA1C 6.9 % 4.0-6. 0 high Diabe klaus Scree eloise Crite russel: <5.7% Consi stent with absen ce of diabe klaus 5.7-6 .4% Consi stent with incre ased risk for diabe klaus (pred iabet es) >OR=6 .5% Consi stent with diabe klaus REFER ENCE: Diabe klaus Care 2016, 39([facility] ppl.1 ):s13 -s22 Not Available [facility] (Lab) [address] [place], [address], 06/13/2022 14:55:22 06/13/19 23 06/13/2022 LIPID PANEL cholesterol 190 mg/dL 140-19 9 NIH UZAIR NSUS RECOM MENDA TION FOR IGOR STERO L: ADULT CHILD LOW RISK: <200 <170 BORDE RLINE : <200- 239 ----- HIGH RISK: >240 >200 Not Available [facility] (Lab) [address] [place], [address], 06/13/2022 14:09:56 06/13/19 23 06/13/2022 LIPID PANEL triglyceride s 294 mg/dL 0-150 high NIH UZAIR NSUS REPOR T RECOM MENDA TION FOR TRIGL YCERI VIVEK: ADULT CHILD LOW RISK: <150 ----- BODER LINE: 150-1 99 ----- HIGH RISK: >200 ----- Not Available [facility] (Lab) [address] [place], [address], 06/13/2022 14:09:56 06/13/19 23 06/13/2022 LIPID PANEL HDL cholesterol 47 mg/dL 40- Not Available [facility] (Lab) [address] [place], [address], 06/13/2022 14:09:56 06/13/19 23 06/13/2022 LIPID PANEL LDL cholesterol, calculated 84 mg/dL 0-130 NIH UZAIR NSUS REPOR T RECOM MENDA TIONS FOR LDL: ADULT CHILD LOW RISK <130 <110 (OPTI MAL LDL) <100 ----- BORDE RLINE : 130-1 59 ----- HIGH RISK: >160 >130 A TRIGL YCERI DE RESUL T >400 INVAL IDATE S THE CALCU LATIO N FOR LDL FRACT IONAT ION - THE LDL RESUL T WILL NOT BE REPOR JENNIFER. Not Available [facility] (Lab) [address] [place], [address], 06/13/2022 14:09:56 06/13/1906/13/2022 COMPR EHENS NERY METAB OLIC PANEL sodium 137 mmol/ L 137-14 5 Not Available [facility] (Lab) [address] [place], [address], 06/13/2022 14:09:50 06/13/19 23 06/13/2022 COMPR EHENS NERY METAB OLIC PANEL potassium 4.8 mmol/ L 3.5-5. 1 Not Available [facility] (Lab) [address] [place], [address], 06/13/2022 14:09:50 06/13/19 23 06/13/2022 COMPR EHENS NERY METAB OLIC PANEL chloride 104 mmol/ L 98-107 Not Available [facility] (Lab) [address] [place], [address], 06/13/2022 14:09:50 06/13/19 23 06/13/2022 COMPR EHENS NERY METAB OLIC PANEL carbon dioxide 26 mmol/ L 22-30 Not Available [facility] (Lab) [address] [place], [address], 06/13/2022 14:09:50 06/13/19 23 06/13/2022 COMPR EHENS NERY METAB OLIC PANEL anion gap 11.8 mmol/ L 14-22 low Not Available [facility] (Lab) [address] [place], [address], 06/13/2022 14:09:50 06/13/19 23 06/13/2022 COMPR EHENS NERY METAB OLIC PANEL glucose 170 mg/dL 70-99 high Not Available [facility] (Lab) [address] [place], [address], 06/13/2022 14:09:50 06/13/19 23 06/13/2022 COMPR EHENS NERY METAB OLIC PANEL BUN 10 mg/dL 8-19 Not Available [facility] (Lab) [address] [place], [address], 06/13/2022 14:09:50 06/13/19 23 06/13/2022 COMPR EHENS NERY METAB OLIC PANEL creatinine 0.62 mg/dL 0.66-1 .25 low Not Available [facility] (Lab) [address] [place], [address], 06/13/2022 14:09:50 06/13/19 23 06/13/2022 COMPR EHENS NERY METAB OLIC PANEL GFR >60 Refer ence Range : [place] ge GFR Healt hy Adult : >60 mL/mi n/1.7 3 m2 Chron ic Kidne y Disea se: 15-60 mL/mi n/1.7 3 m2 Kidne y Failu re: <15/m L/min /1.73 m2 www.n iddk. nih.g ov The MDRD study equat ion has not been valid ated in child jose <18 years of age; pregn ant women ; the elder ly >85 years of age; or in some racia l or ethni c subgr oups, such as Hismn nics. Outsi de the valid ated itzel eters , estim ated GFR is less accur ate, requi ring clini dana judgm ent on a case- by-ca se basis . Clini dana inter preta tion for other races and ages must be made by the clini margaret. The MDRD study equat ion has not been valid ated for the evalu ation of serum creat inine relat ed to nutri haley l statu s or medic ation usage . For perso ns <18 years of age, a pedia tric GFR calcu lator is avail able on the [facility] websi te: https ://felicia stephens.millie rg/pr ofess ional s/kdo qi/gf r_cal culat or Not Available [facility] (Lab) [address] [place], [address], 06/13/2022 14:09:50 06/13/19 23 06/13/2022 COMPR EHENS NERY METAB OLIC PANEL alkaline phosphatase 65 U/L 38-126 Not Available [facility] (Lab) [address] [place], [address], 06/13/2022 14:09:50 06/13/19 23 06/13/2022 COMPR EHENS NERY METAB OLIC PANEL alanine aminotransfe rase 19 U/L 0-35 Not Available [facility] (Lab) [address] [place], [address], 06/13/2022 14:09:50 06/13/19 23 06/13/2022 COMPR EHENS NERY METAB OLIC PANEL aspartate aminotransfe rase 28 U/L 15-37 Not Available [facility] (Lab) [address] [place], [address], 06/13/2022 14:09:50 06/13/19 23 06/13/2022 COMPR EHENS NERY METAB OLIC PANEL bilirubin, total 0.30 mg/dL 0.20-1 .30 Not Available [facility] (Lab) [address] [place], [address], 06/13/2022 14:09:50 06/13/19 23 06/13/2022 COMPR EHENS NERY METAB OLIC PANEL calcium 9.8 mg/dL 8.4-10 .2 Not Available [facility] (Lab) [address] [place], [address], 06/13/2022 14:09:50 06/13/19 23 06/13/2022 COMPR EHENS NERY METAB OLIC PANEL total protein 8.2 g/dL 6.3-8. 2 Not Available [facility] (Lab) [address] [place], [address], 06/13/2022 14:09:50 06/13/19 23 06/13/2022 COMPR EHENS NERY METAB OLIC PANEL albumin 4.2 g/dL 3.4-5. 0 Not Available [facility] (Lab) [address] [place], [address], 06/13/2022 14:09:50 06/13/19 23 06/13/2022 COMPR EHENS NERY METAB OLIC PANEL globulin 4.0 g/dL 2.6-4. 2 Not Available [facility] (Lab) [address] [place], [address], 06/13/2022 14:09:50 06/13/19 23 06/13/2022 COMPR EHENS NERY METAB OLIC PANEL A/G ratio 1.1 ratio 1.0-2. 0 Not Available [facility] (Lab) [address] [place], [address], 06/13/2022 14:09:50 06/13/19 23 06/13/2022 CBC/C OMPLE TE BLD COUNT W/DIF F white blood cells 9.2 x10'3 /uL 4.2-10 .8 Not Available [facility] (Lab) [address] [place], [address], 06/13/2022 13:36:32 06/13/19 23 06/13/2022 CBC/C OMPLE TE BLD COUNT W/DIF F red blood cells 4.60 x10'6 /uL 3.80-5 .20 Not Available [facility] (Lab) [address] [place], [address], 06/13/2022 13:36:32 06/13/19 23 06/13/2022 CBC/C OMPLE TE BLD COUNT W/DIF F hemoglobin 12.8 g/dL 12.0-1 5.6 Not Available [facility] (Lab) [address] [place], [address], 06/13/2022 13:36:32 06/13/19 23 06/13/2022 CBC/C OMPLE TE BLD COUNT W/DIF F hematocrit 38.5 % 35.7-4 5.7 Not Available [facility] (Lab) [address] [place], [address], 06/13/2022 13:36:32 06/13/19 23 06/13/2022 CBC/C OMPLE TE BLD COUNT W/DIF F mean red cell volume 83.7 fL 82.0-9 9.0 Not Available [facility] (Lab) [address] [facility] [place], [address], 06/13/2022 13:36:32 06/13/19 23 06/13/2022 CBC/C OMPLE TE BLD COUNT W/DIF F mean red cell hemoglobin 27.8 pg 27.0-3 3.0 Not Available [facility] (Lab) [address] [facility] [place], [address], 06/13/2022 13:36:32 06/13/19 23 06/13/2022 CBC/C OMPLE TE BLD COUNT W/DIF F mean RBC HGB concentratio n 33.2 g/dL 31.0-3 6.0 Not Available [facility] (Lab) [address] [place], [address], 06/13/2022 13:36:32 06/13/19 23 06/13/2022 CBC/C OMPLE TE BLD COUNT W/DIF F red cell distribution width 13.5 % 11.8-1 5.5 Not Available [facility] (Lab) [address] [place], [address], 06/13/2022 13:36:32 06/13/19 23 06/13/2022 CBC/C OMPLE TE BLD COUNT W/DIF F platelets 363 x10'3 /uL 150-40 0 Not Available [facility] (Lab) [address] [place], [address], 06/13/2022 13:36:32 06/13/19 23 06/13/2022 CBC/C OMPLE TE BLD COUNT W/DIF F mean platelet volume 10.7 fL 9.0-12 .4 Not Available [facility] (Lab) [address] [place], [address], 06/13/2022 13:36:32 06/13/19 23 06/13/2022 CBC/C OMPLE TE BLD COUNT W/DIF F neutrophils 69.6 % 39.0-7 2.0 Not Available [facility] (Lab) [address] [place], [address], 06/13/2022 13:36:32 06/13/19 23 06/13/2022 CBC/C OMPLE TE BLD COUNT W/DIF F lymphocytes 19.7 % 16.0-4 7.0 Not Available [facility] (Lab) [address] [place], [address], 06/13/2022 13:36:32 06/13/19 23 06/13/2022 CBC/C OMPLE TE BLD COUNT W/DIF F monocytes 3.5 % 5.0-12 .0 low Not Available [facility] (Lab) [address] [place], [address], 06/13/2022 13:36:32 06/13/19 23 06/13/2022 CBC/C OMPLE TE BLD COUNT W/DIF F eosinophils 6.3 % 1.0-7. 0 Not Available [facility] (Lab) [address] [place], [address], 06/13/2022 13:36:32 06/13/19 23 06/13/2022 CBC/C OMPLE TE BLD COUNT W/DIF F basophils 0.6 % 0.0-2. 0 Not Available [facility] (Lab) [address] [place], [address], 06/13/2022 13:36:32 06/13/19 23 06/13/2022 CBC/C OMPLE TE BLD COUNT W/DIF F immature granulocytes 0.3 % 0.00-0 .50 Not Available [facility] (Lab) [address] [place], [address], 06/13/2022 13:36:32 06/13/19 23 06/13/2022 CBC/C OMPLE TE BLD COUNT W/DIF F neutrophils, absolute count 6.43 x10'3 /uL 1.5-8. 0 Not Available [facility] (Lab) [address] [place], [address], 06/13/2022 13:36:32 06/13/19 23 06/13/2022 CBC/C OMPLE TE BLD COUNT W/DIF F lymphocytes, absolute count 1.82 x10'3 /uL 1.07-3 .43 Not Available [facility] (Lab) [address] [place], [address], 06/13/2022 13:36:32 06/13/19 23 06/13/2022 CBC/C OMPLE TE BLD COUNT W/DIF F monocytes, absolute count 0.32 x10'3 /uL 0.29-0 .99 Not Available [facility] (Lab) [address] [place], [address], 06/13/2022 13:36:32 06/13/19 23 06/13/2022 CBC/C OMPLE TE BLD COUNT W/DIF F eosinophils, absolute count 0.58 x10'3 /uL 0.02-0 .53 high Not Available [facility] (Lab) [address] [place], [address], 06/13/2022 13:36:32 06/13/19 23 06/13/2022 CBC/C OMPLE TE BLD COUNT W/DIF F basophils, absolute count 0.06 x10'3 /uL 0.01-0 .08 Not Available [facility] (Lab) [address] [place], [address], 06/13/2022 13:36:32 06/13/19 23 06/13/2022 CBC/C OMPLE TE BLD COUNT W/DIF F immature granulocytes ,absolute 0.03 x10'3 /uL 0.00-0 .05 Not Available [facility] (Lab) [address] [place], [address], 06/13/2022 13:36:32 06/13/19 23 06/13/2022 CBC/C OMPLE TE BLD COUNT W/DIF F nucleated red blood cells 0.0 % -0 Not Available [facility] (Lab) [address] [facility], [place], [address], 06/13/2022 13:36:32 06/13/19 23 06/13/2022 CBC/C OMPLE TE BLD COUNT W/DIF F NRBC# 0.00 x10'3 /uL Not Available [facility] (Lab) [address] [place], [address], 06/13/2022 13:36:32 10/02/19 22 10/01/2021 XR, kidne y + urete r + bladd er No observ ation record ed. [id number] [facility] [address], [place], [address], 06/14/2022 06:49:16 11/03/19 XR, wrist No observ ation record ed. [id number] [email or web address] [place] [address] [facility] [address], [place], [address], 06/14/2022 06:49:16 08/12/19 23 08/11/2022 US, head + neck, soft tissu e No observ ation record ed. [email or web address] [address], [place], [address], 08/14/2022 15:41:22 08/19/19 23 08/17/2022 CT, neck, soft tissu e, w/ contr ast No observ ation record ed. [facility] [address] [facility] [address], [place], [address], 08/21/2022 16:29:32 Result Notes None recorded. Problems Name Problem SNOMED Code Status Onset Date Resolution Date Notes Provider Name and Address Organization Details Recorded Time Pain in lower limb 79730859 Active Not Available [facility] 3 06:43:12 Pain in lower limb 96623816 Active 2020 Not Available [facility] 3 06:43:13 Acute sinusitis 47367101 Active Not Available [facility] 3 06:43:13 Pain in throat 652859775 Active Not Available [facility] 3 06:43:13 Impacted cerumen 59652537 Active 2017 Not Available [facility] 3 06:43:13 Insomnia 145208843 Active 2017 Not Available [facility] 3 06:43:13 Feeling stressed 271607902 Active Not Available [facility] 3 06:43:13 Increased blood pressure 44343284 Active 2017 Not Available [facility] 3 06:43:13 Fluid level behind tympanic membrane Active Not Available [facility] 3 06:43:13 Headache 44532361 Active 2017 Not Available [facility] 3 06:43:13 Type 2 diabetes mellitus without complication 023051354 Active 2022 Not Available [facility] 3 06:43:14 Restless legs 09809810 Active 2020 Not Available [facility] 3 06:43:14 Vitamin D deficiency 02274752 Active 2021 Not Available [facility] 3 06:43:14 Depressive disorder 57249625 Active 2020 Not Available [facility] 3 06:43:14 Sinusitis 16419908 Active Not Available [facility] 3 06:43:14 Migraine 76968501 Active 2020 Not Available [facility] 3 06:43:14 Fever 500860953 Active Not Available [facility] 3 06:43:15 Pharyngitis 822733977 Active Not Available [facility] 3 06:43:15 Nausea 096149678 Active 2021 Not Available [facility] 3 06:43:15 Type 2 diabetes mellitus 82888132 Active 2021 Not Available [facility] 3 06:43:15 Seasonal allergy 166698353 Active Not Available [facility] 3 06:43:15 Glycosuria 73760052 Active 2021 Not Available [facility] 3 06:43:15 Anxiety 12603519 Active Not Available [facility] 3 06:43:16 Cough 84149723 Active Not Available [facility] 3 06:43:16 Upper respiratory infection 86173352 Active Not Available [facility] 3 06:43:16 Hyperlipidemi a 96283873 Active 2021 Not Available [facility] 3 06:43:16 Essential hypertension 76567820 Active 2020 Not Available [facility] 3 06:43:16 Otitis media 51864377 Active 2017 Not Available [facility] 3 06:43:16 Posterior rhinorrhea 91911945 Active Not Available [facility] 3 06:43:17 Abnormal vision 0605046 Active 2020 Not Available [facility] 3 06:43:17 Neck pain 14339512 Active Not Available [facility] 3 06:43:17 Fatigue 49470861 Active Not Available [facility] 3 06:43:17 Streptococcal infectious disease 35090982 Active Not Available [facility] 3 06:43:17 Cervical lymphadenopat hy 643513599 Active 2022 Mita Nino NP [address] [facility], [address], [address] , [place] [facility] [employer] 3 16:21:12 Supraclavicul ar lymphadenopat hy 339163876 Active 2022 Mita Nino NP [address] [facility], [facility] [address], [place], [address] , [facility] [employer] [facility] 3 16:21:46 Submandibular lymphadenopat hy 897701216 Active 2022 Mita Nino, PEDRO [address] [facility], [address], [place], [address] , [place] [facility] [employer] [facility] 13:07:32 Problem Notes None recorded. Procedures Surgical History Date Name Laterality Status Provider Name and Address Organization Details Recorded Time Sinus Surgery completed Not Available [facility] 06/14/2022 06:39:45 Imaging Results Imaging Date Name Status LastModified by Organiz ation Details LastModified Time 10/01/2021 XR, kidney + ureter + bladder completed [id number] [facility] [address] [facility] [address], [place], [address], 06/14/2022 06:49:16 11/02/2021 XR, wrist completed [id number] [facility] [place] [address] [facility] [address], [place], [address], 06/14/2022 06:49:16 08/11/2022 US, head + neck, soft tissue completed [email or web address] [address], [place], [address], 08/14/2022 15:41:22 08/17/2022 CT, neck, soft tissue, w/ contrast completed [address], [place], [address], 08/21/2022 16:29:32 Procedure Notes None recorded. Medical Equipment None Reported. Allergies No known drug allergies Medications Name Sig Start Date Stop Date Status Note LastModified by Organization Details LastModified Time cyclobenz aprine 10 mg tablet TAKE 1 TABLET BY MOUTH THREE TIMES DAILY NEEDED active Not Available Not Available No t Available amoxicill in 500 mg capsule active Not Available Not Available Not Available methocarb zechariah 500 mg tablet 08/08 completed Not Available Not Available Not Available metformin 500 mg tablet TAKE 1 TABLET BY MOUTH TWICE DAILY active Not Available Not Available No t Available prednison e 10 mg tablet Take 1 tablet every day by oral route as directed for 7 days. active Not Available Not Available No t Available ropinirol e 1 mg tablet TAKE 1 TABLET BY MOUTH EVERY NIGHT active Not Available Not Available No t Available loperamid e 2 mg capsule 07/18 completed Not Available Not Available Not Available atorvasta tin 10 mg tablet TAKE 1 TABLET BY MOUTH EVERY DAY AT NIGHT active Not Available Not Available No t Available azithromy gladys 250 mg tablet TAKE 2 TABLETS BY MOUTH ON DAY 1, THEN TAKE 1 TABLET BY MOUTH DAILY FOR 4 DAYS active Not Available Not Available No t Available fluconazo le 150 mg tablet TAKE 1 TABLET BY MOUTH EVERY DAY FOR 1 DAY NEEDED active Not Available Not Available No t Available benzonata te 200 mg capsule TAKE 1 CAPSULE BY MOUTH THREE TIMES DAILY 06/13 completed Not Available Not Available Not Available sumatript an 100 mg tablet Take 1 tablet as needed by oral route as directed for 10 days. 08/09 completed Don't take more than 2 pills in 24 hrs. Not Available Not Available Not Available hydrocodo ne 5 mg-acetam inophen 325 mg tablet TK 1 TO 2 TS PO Q 6 H PRN P RATED 4 TO 6 12/27 completed Not Available Not Available Not Available ondansetr on HCl 8 mg tablet TAKE 1 TABLET BY MOUTH EVERY 8 HOURS NEEDED active Not Available Not Available No t Available ondansetr on HCl 4 mg tablet Take 1 tablet every 6-8 hours by oral route as needed for 10 days. active Not Available Not Available No t Available prednison e 20 mg tablet TAKE 2 TABLETS BY MOUTH DAILY FOR 5 DAYS 08/09 completed Not Available Not Available Not Available sertralin e 100 mg tablet TAKE 1 AND 1/2 TABLETS BY MOUTH EVERY DAY active Not Available Not Available No t Available prednison e 5 mg tablet 05/11 completed Not Available Not Available Not Available phentermi ne 15 mg capsule TK 1 C PO QAM WITH BREAKFAS T active Not Available Not Available No t Available penicilli n V potassium 500 mg tablet Take 1 tablet every 8 hours by oral route as directed for 10 days. active Not Available Not Available No t Available phentermi ne 37.5 mg tablet TAKE 1 TABLET BY MOUTH EVERY DAY 06/13 completed Not Available Not Available Not Available ketorolac 30 mg/mL (1 mL) injection solution Inject 1 mL as needed by intramus cular route for 1 day. 07/18 completed Not Available Not Available Not Available amoxicill in 875 mg tablet TAKE 1 TABLET BY MOUTH TWICE DAILY 06/13 completed Not Available Not Available Not Available lorazepam 0.5 mg tablet 06/10 completed Not Available Not Available Not Available ropinirol e 0.25 mg tablet Take 1 tablet every day by oral route at bedtime for 30 days. active Not Available Not Available No t Available Kenalog 10 mg/mL suspensio n for injection In office injectio n administ ered by the provider 06/13 completed [facility]: [id number] 08-03 Not Available Not Available Not Available benzonata te 100 mg capsule Take 1 capsule every 4-6 hours by oral route as directed for 15 days. active Not Available Not Available No t Available pantopraz ole 40 mg tablet,de layed release 1 tab po daily prn 11/12 completed Not Available Not Available Not Available nystatin 100,000 unit/gram topical cream APPLY TO THE AFFECTED AREA(S) BY TOPICAL ROUTE 2 TIMES PER DAY active Not Available Not Available No t Available clotrimaz ole-betam ethasone 1 %-0.05 % topical cream APPLY EXTERNAL LY TO VALVAR AREA TWICE DAILY FOR 7 DAYS 08/08 completed Not Available Not Available Not Available lisinopri l 10 mg tablet TAKE 1 TABLET BY MOUTH EVERY DAY active Not Available Not Available No t Available diclofena c potassium 50 mg tablet active Not Available Not Available Not Available sertralin e 25 mg tablet 06/10 completed Not Available Not Available Not Available monteluka st 10 mg tablet TK 1 T PO D IN THE EVENING active Not Available Not Available No t Available zolpidem 5 mg tablet TK 1 T PO QD active Not Available Not Available No t Available alprazola m 2 mg tablet TAKE 1 TABLET BY MOUTH ONE HOUR PRIOR TO PROCEDUR E 08/08 completed Not Available Not Available Not Available ergocalci ferol (vitamin D2) 1,250 mcg (50,000 unit) capsule TAKE 1 CAPSULE BY MOUTH EVERY WEEK 08/09 completed Not Available Not Available Not Available ibuprofen 600 mg tablet TK 1 T PO Q 6 H WF PRF PAIN 01/02 completed Not Available Not Available Not Available oxycodone -acetamin ophen 7.5 mg-325 mg tablet TAKE 2 TABLETS BY MOUTH 1 HOUR PRIOR TO PROCEDUR E 08/08 completed Not Available Not Available Not Available methylpre dnisolone 4 mg tablets in a dose pack FOLLOW PACKAGE DIRECTIO NS 08/09 completed Not Available Not Available Not Available oxybutyni n chloride 5 mg tablet TAKE 1/2 TABLET TWICE DAILY active Not Available Not Available No t Available ondansetr on 4 mg disintegr ating tablet Place 1 tablet twice a day by translin gual route. active Not Available Not Available No t Available fluticaso ne propionat e 50 mcg/actua tion nasal spray,mario pension SHAKE LQ AND U 1 SPR IEN QD 01/02 completed Not Available Not Available Not Available sertralin e 50 mg tablet TAKE 1 AND 1/2 TABLETS BY MOUTH EVERY DAY 12/14 completed Not Available Not Available Not Available loratadin e 10 mg tablet TAKE ONE T PO EVERY DAY IN THE MORNING active Not Available Not Available No t Available amoxicill in 875 mg-potass ium clavulana te 125 mg tablet TAKE 1 TABLET BY MOUTH EVERY 12 HOURS FOR 7 DAYS 08/09 completed Not Available Not Available Not Available amoxicill in 500 mg-potass ium clavulana te 125 mg tablet TK 1 T PO Q 12 H FOR 10 DAYS active Not Available Not Available No t Available escitalop consuelo 10 mg tablet TK 1 T PO EVERY EVENING active pt states wasn't helping Not Available Not Available Not Available cyclobenz aprine 5 mg tablet Take 1 tablet every day by oral route at bedtime for 30 days. active Not Available Not Available No t Available (21) 1.5 mg-30 mcg tablet TAKE 1 TABLET BY MOUTH DAILY active Not Available Not Available No t Available topiramat e 50 mg tablet TAKE 1 TABLET BY MOUTH TWICE DAILY 08/08 completed Will try titratin g off over the last month. Not Available Not Available Not Available nitrofura ntoin monohydra te/macroc rystals 100 mg capsule 08/08 completed Not Available Not Available Not Available zolpidem ER 6.25 mg tablet,ex tended release,m ultiphase TK 1 T PO D HS PRF SLEEP 10/31 completed Not Available Not Available Not Available zolpidem ER 12.5 mg tablet,ex tended release,m ultiphase TAKE 1 TABLET BY MOUTH AT BEDTIME active Not Available Not Available No t Available Jolessa 0.15 mg-30 mcg (91) tablets,3 month dose pack TAKE 1 TABLET BY MOUTH DAILY 08/08 completed Not Available Not Available Not Available ropivacai ne (PF) 5 mg/mL (0.5 %) injection solution Take 2 mg by injectio n route. active Not Available Not Available No t Available OneTouch Verio test strips USE TO TEST FASTING GLUCOSE DAILY AND RECORD active Not Available Not Available No t Available OneTouch Delica Plus Lancet 33 gauge active Not Available Not Available Not Available OneTouch Verio Reflect Meter USE TO TEST DAILY AND RECORD active Not Available Not Available No t Available BinaxNOW COVID-19 Ag Self Test kit TEST DIRECTED TODAY 06/13 completed Not Available Not Available Not Available Vitals Date Recorded Body mass index (BMI) Body mass index (BMI) Body mass index (BMI) Body mass index (BMI) Body height Body height Body height Body height Oxygen saturation Oxygen saturation in Arterial blood by Pulse oximetry Oxygen saturation Oxygen saturation in Arterial blood by Pulse oximetry Pain severity - 0-10 verbal numeric rating [Score] - Reported Pain severity - 0-10 verbal numeric rating [Score] - Reported Heart rate Heart rate Body temperature Body temperature Body weight Body weight Body weight Body weight Systolic blood pressure Diastolic blood pressure Systolic blood pressure Diastolic blood pressure Provider Name and Address Organization Details Last Updated DateTime 3 36.4 kg/m2 35.7 kg/m2 34.7 kg/m2 37.1 kg/m2 162.56 cm 162.56 cm 162.56 cm 162.56 cm 98 % 98 % 96 % 96 % 6 8 98 /min 93 /min 97.8 [degF] 97.2 [degF] 17141.5 8 g 38451.2 1 g 92568.6 6 g 11424.9 5 g 142 mm[Hg] 98 mm[Hg] 118 mm[Hg] 78 mm[Hg] Not Available [facility] 3 06:40:24 Date Recorded Body height Body mass index (BMI) Body weight Body temperature Heart rate Respiratory rate Oxygen saturation Oxygen saturation in Arterial blood by Pulse oximetry Pain severity - 0-10 verbal numeric rating [Score] - Reported Systolic blood pressure Diastolic blood pressure Provider Name and Address Organization Details Last Updated DateTime 162.56 cm 37.2 kg/m2 98604.1 g 97.7 [degF] 83 /min 16 /min 99 % 99 % 2 184 mm[Hg] 110 mm[Hg] Mita Gleason RN [facility] [employer] 16:05:56 Date Recorded Systolic blood pressure Diastolic blood pressure Provider Name and Address Organization Details Last Updated DateTime 08/09/2022 170 mm[Hg] 100 mm[Hg] Mita Nino, PEDRO [address] [facility], [facility] [address], [place], [address], [place] [employer] [facility] [employer] 08/09/2022 16:28:27 Social History Question Answer Notes LastModified by Organization Details LastModified Time Tobacco Smoking Status Unknown If Ever Smoked Not Available [facility] 06/14/2022 06:39:22 What Is Your Level Of Alcohol Consumption? Occasional [id number] Information not available 06/14/2022 What Is Your Level Of Caffeine Consumption? Occasional Soda Or Coffee Information not available 08/09/2022 In The 14 Days Before Symptom Onset, Have You Had Close Contact With A Laboratory-confi rmed COVID-19 While That Case Was Ill? No Information not available 08/09/2022 In The 14 Days Before Symptom Onset, Have You Had Close Contact With A Person Who Is Under Investigation For COVID-19 While That Person Was Ill? No Information not available 08/09/2022 Are You Currently Employed? Yes Information not available 08/09/2022 Which Illicit Or Recreational Drugs Have You Used? THC Information not available 08/09/2022 What Is The Highest Grade Or Level Of School You Have Completed Or The Highest Degree You Have Received? [id number] Information not available 08/09/2022 What Is Your Occupation? [employer] [id number] Information not available 06/14/2022 Have There Been Any Changes To Your Family Or Social Situation? No Information not available 08/09/2022 Do You Use Insect Repellent Routinely? Yes Information not available 08/09/2022 Where [facility] You Live? [facility] Information not available 08/09/2022 What Was The Date Of Your Most Recent Tobacco Screening? 11/02/2021 [id number] Information not available 06/14/2022 How Many Children Do You Have? -1 Information not available 08/09/2022 Do You Have Any Pets? Yes Information not available 08/09/2022 What Is Your Relationship Status? Information not available 08/09/2022 Do You Use Your Seat Belt Or Car Seat Routinely? Yes Information not available 08/09/2022 Do You Have Smoke And Carbon Monoxide Detectors In Your Home? Yes Information not available 08/09/2022 Are There Any Smokers In Your House? No Information not available 08/09/2022 Do You Participate In [employer]? Yes Information not available 08/09/2022 Do You Feel Stressed (tense, Restless, Nervous, Or Anxious, Or Unable To Sleep At Night)? [id number] Information not available 08/09/2022 Do You Use Any Illicit Or Recreational Drugs? Yes Information not available 08/09/2022 Do You Use Sunscreen Routinely? Yes Information not available 08/09/2022 Have You Recently Traveled Abroad? No Information not available 08/09/2022 Have You Used IV Drugs? No Information not available 08/09/2022 Sex: Female Functional Status None recorded. Mental Status None recorded. Family History Relationship Description Onset Age of this Age Resolved Age Notes LastModified by Organization Details LastModified Time Father Family history of stroke [id number] Not available 06/14/2022 06:39:46 Mother Hypertensive disorder [id number] Not available 06/14/2022 06:39:46 Medical History Condition Response INSOMNIA Y HIGH CHOLESTEROL / HYPERLIPIDEMIA Y DEPRESSION (INCLUDING POST ) Y DIABETES, TYPE Y HYPERTENSION Y Gynecological History Statement/Question Response If Post Menopausal, Age at Menopause 46 Date of Last Pap Smear Date of Last Colonoscopy Most Recent Mammogram Most Recent Bone Density Obstetrics History GPAL:G 0 P 0 0 0 0 Past Encounters Encounter ID Performer Location Encounter Start Date Encounter Closed Date Diagnosis/Indication Diagnosis SNOMED-CT Code Diagnosis ICD10 Code Diagnosis Note [id number] [facility] [address] [place] [address] 08/13/2020 00:00:00 08/13/2020 17:24:56 [id number] [facility] [address] [place] [address] 12/14/2020 00:00:00 12/15/2020 18:39:41 [id number] [facility] [address] [place] [address] 08/08/2021 00:00:00 08/08/2021 18:40:51 [id number] [facility] [address] [place] [address] 09/29/2021 00:00:00 09/29/2021 18:34:17 [id number] [facility] [address] [place] [address] 09/30/2021 00:00:00 09/30/2021 17:32:16 [id number] [facility] [address] [place] [address] 10/07/2021 00:00:00 10/07/2021 13:03:27 [id number] [facility] [place] [address] [place] [address] 11/02/2021 00:00:00 11/02/2021 17:23:27 [id number] [facility] [place] [address] [place] [address] 11/30/2021 00:00:00 11/30/2021 14:39:54 [id number] [facility] [address] [place] [address] 06/13/2022 00:00:00 06/13/2022 12:18:46 [id number] Mita Nino NP [facility] [address] [place] [address] 08/09/2022 15:54:37 08/09/2022 17:09:44 Cervical lymphadenopathy [id number] R59.0 Right head and neck US soft tissue. Pt aware CT may be needed. Pt aware we need to check for potential malignancy . This may include CXR and other work up too. Supraclavi cular lymphadenopathy [id number] R59.0 Right. Essential hypertension [id number] I10 Not controlled . Pt to check at home and keep log. FU in 2 weeks Type 2 mahad betes mellitus without complication [id number] E11.9 Hasn't checked fasting glucose routinely. Needs to keep log. Health Concerns Section Related Observation LastModified by Organization Detai ls LastModified Time None Recorded Concern Status LastModified by Organization Details LastModified Time None Recorded Advance Directives Directive None Recorded Payers Encounter Date Sequence Insurance Name Policy Number Policy Purcell Covered Member ID Purcell Member ID Guarantor Name 08/09/2022 1 [facility] [place] [id number] Traci Casas [id number] Traci Casas Notes Date Note Type Note Provider Name and Address Organization Details Recorded Time 08/09/2022 text/html Here for allergi es, bp, etc. Always sinus and allergies. Occasional clear/green drainage.Has been having some swelling to right ear and jaw recently.Has swelling to right supraclavicular area since june 2022. Swelling to right jaw for past 2-4 weeks. Left jaw slight swelling. Had been on augmentin and steroids in May. Went to in june and given steroids, didn't take due to them making her feel poorly. Symptoms persisted. Here due to concern and feeling like she can't rotate her head due to swelling. No fever, chills, sore throat, night sweats. BP elevated today. States still on medication. Stressed and concerned about health DM- Sugars fasting not checked. States she is not good about this. Was checking before dinner, but again, not routine. Mita Nino NP [address] [facility] [facility], [facility] [address], [place], [address], [facility] [employer] 08/10/2022 07:25:37 OBGyn Episode No OBEpisode recorded.
--- OUTSIDE RECORDS SUMMARY | 2024-05-21 08:48 | XMS_ITS | Clinical Summary ---
Author Organization [facility] Address [address] [place] [address] Care Team Providers Care Clock And Watch Hands Painter Name Role Phone Francisca Johnson DO Primary Care Provider [phone] Source Comments [facility],non-owned Affiliates and Associated Physician Practices is amultiple site organization consisting of ambulatory clinics and hospital sitesin [place], [place], [place] and [place]. This disclosure is being madepursuant to the Care Everywhere program and may not contain all information available regarding this patient. Last updated 18.[facility] Allergies No known active allergies Medications * Be aware that medications may not be up to date on this document. Alwaysverify current medications with the patient. Medication Sig Dispensed Refills Start Date End Date Status amoxicillin (Amoxil) 500 MG capsule Active amoxicillin-clavul anate (Augmentin) 500-125 MG tablet TK 1 T PO Q 12 H FOR 10 DAYS Active atorvastatin (Lipitor) 10 MG tablet Take 1 (one) tablet by mouth 12/20/2023 Active azithromycin (Zithromax) 250 MG tablet TAKE 2 TABLETS BY MOUTH ON DAY 1, THEN TAKE 1 TABLET BY MOUTH DAILY FOR 4 DAYS 09/08/2023 Active cyclobenzaprine (Flexeril) 10 MG tablet Take 1 (one) tablet by mouth 3 times daily as needed 11/16/2023 Active diclofenac potassium (Cataflam) 50 MG tablet Active Slynd 4 MG TABS tablet Take 1 (one) tablet by mouth once daily 12/25/2023 Active escitalopram (Lexapro) 10 MG tablet TK 1 T PO EVERY EVENING Active eszopiclone (Lunesta) 2 MG tablet Take 1 (one) tablet by mouth once daily 09/17/2023 Active lisinopril (Prinivil; Zestril) 10 MG tablet Take 1 (one) tablet by mouth once daily Active loratadine (Claritin) 10 MG tablet TAKE ONE T PO EVERY DAY IN THE MORNING Active losartan (Cozaar) 100 MG tablet Take 1 (one) tablet by mouth once daily 01/23/2023 Active metFORMIN (Glucophage) 500 MG tablet Take 1 (one) tablet by mouth 2 times daily 09/26/2023 Active montelukast (Singulair) 10 MG tablet TK 1 T PO D IN THE EVENING Active Malia 1.5/30 1.5-30 MG-MCG tablet TAKE 1 TABLET BY MOUTH ONCE DAILY CONTINUOUSLY Active ondansetron (Zofran) 8 MG tablet Take 1 (one) tablet by mouth every 8 hours as needed Active oxyBUTYnin (Ditropan) 5 MG tablet 0.5 (one-half) tablet 2 times daily Active penicillin v potassium (Veetids) 500 MG tablet Take 1 tablet every 8 hours by oral route as directed for 10 days. Active sertraline (Zoloft) 100 MG tablet Take 1.5 (one and one-half) tablets by mouth once daily Active zolpidem CR (Ambien Cr) 12.5 MG tablet Take 1 (one) tablet by mouth at bedtime 09/30/2023 Active fluconazole (Diflucan) 200 MG tabletIndications: Vulvar itching,Candidal vulvitis Diflucan 200 mg tablet, one by mouth every other day for three doses. 3 tablet 02/06/2024 Active nystatin (Mycostatin) 289063 UNIT/GM ointmentIndication s:Vulvar itching,Candidal vulvitis Use with the Triamcinolone ointment 0.1% 3 times a week & by itself PRN for itching 2-3 times a day 30 g 2 02/06/2024 Active triamcinolone acetonide (Kenalog) 0.1 % ointmentIndication s:Vulvar itching,Candidal vulvitis Use with the nystatin ointment to vulvar skin 3 times a week 30 g 2 02/06/2024 Active Active Problems Problem Noted Date Diagnosed Date Anxiety 02/06/2024 Fatigue 02/06/2024 Neck pain 02/06/2024 Seasonal allergies 02/06/2024 Gastroesophageal reflux disease without esophagi tis 08/29/2022 Hyperlipidemia 10/07/2021 Type 2 diabetes mellitus 10/04/2021 Vitamin D deficiency 10/04/2021 Depressive disorder 08/13/2020 Migraine 08/13/2020 Essential hypertension 05/03/2020 Restless legs 05/03/2020 Finding of above normal blood pressure 8 Headache 08/07/2017 Family History Medical History Relation Name Comments CVA Father None Known Maternal Grandfather None Known Maternal Grandmother Hypertension Mother Thyroid Disease Mother None Known Paternal Grandfather Alzheimer's Disease Paternal Grandmother Relation Name Status Comments Father Alive Maternal Grandfather Maternal Grandmother Mother Paternal Grandfather Paternal Grandmother Social History Tobacco Use Types Packs/Day Years Used Date Smoking Tobacco: Never Passive Smoke Exposure: Never Smokeless Tobacco: Never Alcohol Use Standard Drinks/Week Comments Yes 0 (1 standard drink = 0.6 oz pur e alcohol) 1 drink Sex and Gender Information Value Date Recorded Sex Assigned at Not on file Gender Identity Not on file Sexual Orientation Not on file Last Filed Vital Signs Vital Sign Reading Time Taken Comments Blood Pressure 128/88 02/06/2024 12:53 PM CDT Pulse - - Temperature - - Respiratory Rate - - Oxygen Saturation - - Inhaled Oxygen Concentration - - Weight 97.5 kg (215 lb) 02/06/2024 12:53 PM CDT Height 162.6 cm (5' 4 ) 02/06/2024 12:53 PM CDT Body Mass Index 36.9 02/06/2024 12:53 PM CDT Plan of Treatment Health Maintenance Due Date Last Done Comments COLOGUARD (AGES 45-75) - COL ON CA SCREENING 1975 COLON MONITORING 1975 COLONOSCOPY - COLON CA SCREENING 1975 CT COLONOGRAPHY - COLON CA SCREENING 1975 Colorectal Cancer Screening 1975 FIT - COLON CA SCREENING 1975 FLEX SIG - COLON CA SCREENING 1975 MAMMOGRAM 1975 PAP SMEAR 1975 HIV SCREENING 1990 HEPATITIS C SCREENING 02/17/1993 DIABETES-SERUM CREATININE 1993 DTAP/TDAP/TD VACCINES (1 - Tdap) 1994 HEPATITIS B VACCINE (1 of 3 - 19+ 3-dose series) 1994 COVID-19 VACCINE (3 2023-2 5 season) 2023 08/06/2020, 07/09/2020 INFLUENZA VACCINE (#1) 2023 DIABETES RETINOPATHY SCREENING 02/06/2024 DIABETES-FOOT EXAM WITH MONOFILAMENT 02/06/2024 DIABETES-HGB A1C 02/06/2024 09/21/2022 DEPRESSION SCREENING 04/16/2024 DIABETES - URINE PROTEIN SCREENING 04/16/2024 ZOSTER VACCINE (1 of 2) 2025 HIB VACCINE Aged Out No longer eligi ble based on patient's age to complete this topic HPV VACCINE Aged Out No longer eligi ble based on patient's age to complete this topic MENINGOCOCCAL (Group B) VACCINE Aged Out No longer eligible b ased on patient's age to complete this topic MENINGOCOCCAL VACCINE Aged Out No rian yanni eligible based on patient's age to complete this topic Care Teams Clock And Watch Hands Painter Relationship Specialty Start Date End Date Francisca Johnson DO [address] [place] [address] PCP - General Family Medicine 02/06/24
--- OUTSIDE RECORDS SUMMARY | 2024-05-21 08:48 | XMS_ITS | Referral Summary ---
Author Organization [facility] Address [address] [place] [address] Phone Care Team Providers Care Motorcycle Fabricator Name Role Phone Jared Burciaga MD Primary Care Provider [phone] Allergies No known active allergies Medications sertraline (ZOLOFT) 100 mg tablet Take 1.5 tablets (150 mg total) by mouth daily 08/03/19 23 Active oxyBUTYnin (DITROPAN) 5 mg tablet Take 0.5 tablets (2.5 mg total) by mouth 2 (two) times a day 06/27/19 23 Active norethindrone ethinyl estradiol (Junel ,) 1.5-30 mg-mcg tablet per tablet Take 1 tablet by mouth daily Active ibuprofen (ADVIL,MOTRIN) 600 mg tablet Take by mouth every 6 (six) hours as needed 01/15/20 23 Active azithromycin (ZITHROMAX) 250 mg tablet Take 2 tabs (500 mg) by mouth today, than 1 tab (250 mg) daily for 4 days. 6 tablet 09/08/19 24 Active eszopiclone (LUNESTA) 2 mg tabletIndicati ons:Insomnia Take 1 tablet (2 mg total) by mouth daily Take immediately before bedtime 30 tablet 3 09/17/19 24 Active metFORMIN (GLUCOPHAGE) 500 mg tablet TAKE 1 TABLET(500 MG) BY MOUTH TWICE DAILY 180 tablet 1 09/26/19 24 Active zolpidem CR (AMBIEN CR) 12.5 mg CR tablet Take 1 tablet (12.5 mg total) by mouth nightly as needed for sleep 30 tablet 09/30/19 24 Active cyclobenzaprin e (FLEXERIL) 10 mg tabletIndicati ons:Lymphadeno mina of head and neck Take 1 tablet (10 mg total) by mouth 3 (three) times a day as needed for muscle spasms for muscle spasms 90 tablet 2 11/16/19 24 Active atorvastatin (LIPITOR) 10 mg tablet TAKE 1 TABLET(10 MG) BY MOUTH EVERY NIGHT 100 tablet 1 12/20/19 24 Active losartan (COZAAR) 100 mg tablet TAKE 1 TABLET(100 MG) BY MOUTH DAILY 90 tablet 4 04/24/19 25 Active losartan (COZAAR) 100 mg tablet Take 1 tablet (100 mg total) by mouth daily 90 tablet 4 01/24/20 23 025 Discontinued Active Problems Problem Noted Date Diagnosed Date Morbid (severe) obesity due to excess calories 1 Essential hypertension 08/29/2022 Gastroesophageal reflux disease without esophagi tis 08/29/2022 Lymphadenopathy of head and neck 08/29/2022 Oral contraceptive use 08/29/2022 Controlled type 2 diabetes m ellitus without complication, without long-term current use of insulin ([facility]) 08/29/2022 Social History Tobacco Use Types Packs/Day Years Used Date Smoking Tobacco: Never Smokeless Tobacco: Never Tobacco Cessation:Counseling Given: No AUDIT-C Answer Date Recorded Q1: How often do you have a drink containing alcohol? Never 01/23/2023 Q2: How many drinks containi ng alcohol do you have on a typical day when you are drinking? Patient does not drink Q3: How often do you have si x or more drinks on one occasion? Never 01/23/2023 PHQ-2 Answer Date Recorded PHQ-2 Total Score (If total score is 3 or more points, staff should administer the PHQ-9) 0 01/23/2023 Personal Safety Answer Date Recorded Getting School Help Needed Not on file 03/29 Comments No Sex and Gender Information Value Date Recorded Sex Assigned at Not on file Legal Sex Female 9:18 AM CDT Gender Identity Not on file Sexual Orientation Not on file Last Filed Vital Signs Vital Sign Reading Time Taken Comments Blood Pressure 128/84 01/23/2023 3:31 PM CDT Pulse 96 01/23/2023 3:31 PM CDT Temperature 36.4 ??C (97.6 ??F) 01/23/2023 3:31 PM CD T Respiratory Rate - - Oxygen Saturation 98% 01/23/2023 3:31 PM CDT Inhaled Oxygen Concentration - - Weight 98 kg (216 lb) 01/23/2023 3:31 PM CDT Height 162.6 cm (5' 4 ) 01/23/2023 3:31 PM CDT Body Mass Index 37.08 01/23/2023 3:31 PM CDT Plan of Treatment Not on file Procedures Procedure Name Priority Date/Time Associated Diagnosis Comments COMPREHENSIVE METABOLIC PANEL Routine 09/21/2022 8:51 AM CDT HEMOGLOBIN A1C Routine 09/21/2022 8:51 AM CDT LIPID PANEL Routine 09/21/2022 8:51 AM CDT from Last 3 Months or Most Recently Relevant to Health Maintenance Results * (ABNORMAL) Hemoglobin A1c (09/21/2022 8:51 AM CDT) Hgb A1C 7.6(H) <5.7 % of total Hgb [facility] Comment: For someone without known diabetes, a hemoglobin A1c value of 6.5% or greater indicates that they may have diabetes and this should be confirmed with a follow-up test. For someone with known diabetes, a value <7% indicates that their diabetes is well controlled and a value greater than or equal to 7% indicates suboptimal control. A1c targets should be individualized based on duration of diabetes, age, comorbid conditions, and other considerations. Currently, no consensus exists regarding use of hemoglobin A1c for diagnosis of diabetes for children. ?? 09/21/2022 8:51 AM CDT 09/21/2022 8:52 AM CDT Narrative [facility] - 09/22/2022 4:39 AM CDT FASTING:YES FASTING: YES us Jared Burciaga MD LAB BLOOD ORDERABLES Final R esult [facility] [address] [place] [address] * (ABNORMAL) Lipid panel (09/21/2022 8:51 AM CDT) Cholesterol 141 <200 mg/dL [facility] HDL 44(L) > OR = 50 mg/dL [facility] Triglycerides 241(H) <150 mg/dL [facility] Comment: If a non-fasting specimen was collected, consider repeat triglyceride testing on a fasting specimen if clinically indicated. Cecelia et al. J. of Clin. Lipidol. 2015;9:129-169. LDL 67 mg/dL (calc) [facility] Comment: Reference range: <100 Desirable range <100 mg/dL for primary prevention; ?? <70 mg/dL for patients with CHD or diabetic patients with > or = 2 CHD risk factors. LDL-C is now calculated using the Mitch-Jesse calculation, which is a validated novel method providing better accuracy than the Friedewald equation in the estimation of LDL-C. Mitch DUNN et al. JESSY. 2013;310(19): 6291-4066 (http://education.Adenyo/faq/IJX408) Chol/HDL ratio 3.2 <5.0 (calc) [facility] Non-HDL, (LDL+VLDL) 97 <130 mg/dL (calc) [facility] Comment: For patients with diabetes plus 1 major ASCVD risk factor, treating to a non-HDL-C goal of <100 mg/dL (LDL-C of <70 mg/dL) is considered a therapeutic option. 09/21/2022 8:51 AM CDT 09/21/2022 8:52 AM CDT Narrative [facility] - 09/22/2022 4:39 AM CDT FASTING:YES FASTING: YES us Jared Burciaga MD LAB BLOOD ORDERABLES Final R esult [facility] [address] [address] * (ABNORMAL) Comprehensive metabolic panel (09/21/2022 8:51 AM CDT) [facility] Glucose 176(H) 65 - 99 mg/dL [facility] Comment: ? Fasting reference interval For someone without known diabetes, a glucose value >125 mg/dL indicates that they may have diabetes and this should be confirmed with a follow-up test. BUN 11 7 - 25 mg/dL [facility] Creatinine 0.80 0.50 - 0.99 mg/dL [facility] eGFR 91 > OR = 60 mL/min/1. 73m2 [facility] Comment: The eGFR is based on the CKD-EPI 2020 equation. To calculate the new eGFR from a previous Creatinine or Cystatin C result, go to https://www.kidney.org/professionals/ kdoqi/gfr%5Fcalculator BUN/creat ratio NOT APPLICABLE 6 - 22 (calc) [facility] Sodium 136 135 - 146 mmol/L [facility] Potassium, pl 4.4 3.5 - 5.3 mmol/L [facility] Chloride 103 98 - 110 mmol/L [facility] CO2 23 20 - 32 mmol/L [facility] Calcium 9.5 8.6 - 10.2 mg/dL [facility] Protein, sr 7.4 6.1 - 8.1 g/dL [facility] Albumin 4.0 3.6 - 5.1 g/dL [facility] GLOBULIN 3.4 1.9 - 3.7 g/dL (calc) [facility] Alb/glob ratio 1.2 1.0 - 2.5 (calc) [facility] Bilirubin, total 0.4 0.2 - 1.2 mg/dL [facility] Alk phos 50 31 - 125 U/L [facility] AST 18 10 - 35 U/L [facility] ALT (SGPT) 10 6 - 29 U/L [facility] 09/21/2022 8:51 AM CDT 09/21/2022 8:52 AM CDT Narrative [facility] - 09/22/2022 4:39 AM CDT FASTING:YES FASTING: YES us Jared Burciaga MD LAB BLOOD ORDERABLES Final R esult [facility] [address] [phone] from Last 3 Months or Most Recently Relevant to Health Maintenance Insurance [employer] [place] [employer] [place] Care Teams Motorcycle Fabricator Relationship Specialty Start Date End Date Jared Burciaga MD PCP - General Internal Medicine 08/29/22
--- OUTSIDE RECORDS SUMMARY | 2024-05-21 08:48 | XMS_ITS | Patient Health Summary ---
Author Organization [facility] Address [address] [place] [address] Care Team Providers Care Visual Designer Name Role Phone Francisca Johnson DO Primary Care Provider [phone]- [phone] Note from [facility],non-owned Affiliates and Associated Physician Practices is amultiple site organization consisting of ambulatory clinics and hospital sitesin [place], [place], [place] and [place]. This disclosure is being madepursuant to the Care Everywhere program and may not contain all information available regarding this patient. Last updated 18.[facility] Allergies No known active allergies Medications * Be aware that medications may not be up to date on this document. Alwaysverify current medications with the patient. * amoxicillin (Amoxil) 500 MG capsule * amoxicillin-clavulanate (Augmentin) 500-125 MG tablet TK 1 T PO Q 12 H FOR 10 DAYS * atorvastatin (Lipitor) 10 MG tablet(Started 12/20/2023) Take 1 (one) tablet by mouth * azithromycin (Zithromax) 250 MG tablet(Started 09/08/2023) TAKE 2 TABLETS BY MOUTH ON DAY 1, THEN TAKE 1 TABLET BY MOUTH DAILY FOR 4 DAYS * cyclobenzaprine (Flexeril) 10 MG tablet(Started 11/16/2023) Take 1 (one) tablet by mouth 3 times daily as needed * diclofenac potassium (Cataflam) 50 MG tablet * Slynd 4 MG TABS tablet(Started 12/25/2023) Take 1 (one) tablet by mouth once daily * escitalopram (Lexapro) 10 MG tablet TK 1 T PO EVERY EVENING * eszopiclone (Lunesta) 2 MG tablet(Started 09/17/2023) Take 1 (one) tablet by mouth once daily * lisinopril (Prinivil; Zestril) 10 MG tablet Take 1 (one) tablet by mouth once daily * loratadine (Claritin) 10 MG tablet TAKE ONE T PO EVERY DAY IN THE MORNING * losartan (Cozaar) 100 MG tablet(Started 01/23/2023) Take 1 (one) tablet by mouth once daily * metFORMIN (Glucophage) 500 MG tablet(Started 09/26/2023) Take 1 (one) tablet by mouth 2 times daily * montelukast (Singulair) 10 MG tablet TK 1 T PO D IN THE EVENING * Malia 1.5/30 1.5-30 MG-MCG tablet TAKE 1 TABLET BY MOUTH ONCE DAILY CONTINUOUSLY * ondansetron (Zofran) 8 MG tablet Take 1 (one) tablet by mouth every 8 hours as needed * oxyBUTYnin (Ditropan) 5 MG tablet 0.5 (one-half) tablet 2 times daily * penicillin v potassium (Veetids) 500 MG tablet Take 1 tablet every 8 hours by oral route as directed for 10 days. * sertraline (Zoloft) 100 MG tablet Take 1.5 (one and one-half) tablets by mouth once daily * zolpidem CR (Ambien Cr) 12.5 MG tablet(Started 09/30/2023) Take 1 (one) tablet by mouth at bedtime * fluconazole (Diflucan) 200 MG tablet(Started 02/06/2024) Diflucan 200 mg tablet, one by mouth every other day for three doses. * nystatin (Mycostatin) 903143 UNIT/GM ointment(Started 02/06/2024) Use with the Triamcinolone ointment 0.1% 3 times a week & by itself PRN for itching 2-3 times aday 2 refills by 02/05/2025 * triamcinolone acetonide (Kenalog) 0.1 % ointment(Started 02/06/2024) Use with the nystatin ointment to vulvar skin 3 times a week 2 refills by 02/05/2025 Active Problems Problem Noted Date Diagnosed Date Anxiety 02/06/2024 Fatigue 02/06/2024 Neck pain 02/06/2024 Seasonal allergies 02/06/2024 Gastroesophageal reflux disease without esophagi tis 08/29/2022 Hyperlipidemia 10/07/2021 Type 2 diabetes mellitus 10/04/2021 Vitamin D deficiency 10/04/2021 Depressive disorder 08/13/2020 Migraine 08/13/2020 Essential hypertension 05/03/2020 Restless legs 05/03/2020 Finding of above normal blood pressure 8 Headache 08/07/2017 Social History Tobacco Use Types Packs/Day Years [...] Mass Index 36.9 02/06/2024 12:53 PM CDT Procedures * SUSCEPTIBILITY YEAST(Performed 02/06/2024) * CULTURE YEAST(Performed 02/06/2024) Performed for Vulvar itching, Candidal vulvitis Results * SUSCEPTIBILITY YEAST (02/06/2024 1:34 PM CDT) Source [facility] Organism ID HYACINTH ALBICANS [facility] Amphotericin B <=0.120 mcg/mL [facility] Anidulafungin <=0.015 S mcg/mL [facility] Caspofungin 0.030 S mcg/mL [facility] Fluconazole 0.500 S mcg/mL [facility] 5-Flucytosine <=0.060 mcg/mL [facility] Itraconazole <=0.015 mcg/mL [facility] Micafungin <=0.008 S mcg/mL [facility] Posaconazole 0.015 mcg/mL [facility] Voriconazole <=0.008 S mcg/mL [facility] Comment SEE BELOW [facility] Comment: Drug concentrations are expressed in mcg/mL. S = Susceptible S-DD = Susceptible-Dose Dependent I = Intermediate R = Resistant Susceptible Dose Dependent (S-DD): susceptibility is dependent on achieving maximum blood levels. CARA interpretations are based on recently published CLSI guidelines. Only the CARA value is reported when CLSI guidelines are not available. This test was performed using a kit that has not been cleared or approved by the FDA. The analytical performance characteristics of this test have been determined by [facility]. This test should not be used for diagnosis without confirmation by other medically established means. Test Performed at: [employer] [address] [place], [place] ??[address] ALEXIA CRUZ MD,PHD,CHRISTIANO 02/06/2024 1:34 PM CDT 02/07/2024 12:34 AM CDT Alvina Kelly APRN-[facility] - MICRO BIOLOGY ORDERABLES Performing Organization Address [facility] [address] de Phone Number [facility] [id number] [place] [phone] * (ABNORMAL) CULTURE YEAST (02/06/2024 1:34 PM CDT) [facility] Culture Yeast with ID (A) [facility] Comment: ??CULTURE, YEAST, W/IDENTIFICATION ?Micro Number: ?[id number] ??Test Status: ? Final ??Specimen Source: ?? Vulva ??Specimen Quality: ??Adequate ??Result: ?Hyacinth albicans ? Isolate forwarded to [facility] ? [facility] for Susceptibility Testing. Test Performed at: [facility] ??[id number] LATOYA GARZA MD Microbiology ENTIRE VULVA / Unknown 02/06/2024 1:34 PM CDT 02/07/2024 12:34 AM CDT Alvina Kelly APRN-[facility] - MICRO BIOLOGY ORDERABLES Performing Organization Address [facility] [address]/[facility] de Phone Number [address] [address] Care Teams Visual Designer Relationship Specialty Start Date End Date Francisca Johnson DO [address] [place] [id number] PCP - General Family Medicine 02/06/24
--- OUTSIDE RECORDS SUMMARY | 2024-05-21 08:48 | XMS_ITS | Clinical Summary ---
Author Organization [facility] Address [address] [place] [address] Phone Care Team Providers Care Frontend Engineer Name Role Phone Jared Burciaga MD Primary Care Provider [phone] Allergies No known active allergies Medications sertraline [...] complication, without long-term current use of insulin ([facility]) 08/29/2022 Medical History Medical History Date Comments Hypertension Diabetes mellitus (HCC) Social History Tobacco Use Types Packs/Day Years [...] on file Sexual Orientation Not on file Obstetrics History Last Filed Vital Signs Vital Sign Reading [...] 01/23/2023 3:31 PM CDT Plan of Treatment Health Maintenance Due Date Last Done Comments Albumin Creatinine Ratio, Urine 1975 Breast Cancer Screening-Mammogram 1975 Cervical Cancer Screening 1975 Colon Cancer Screening-Colonoscopy 1975 Hepatitis C Screening 1975 Dilated Eye Exam 1975 Foot Exam 1975 Pneumococcal vaccine <65 (1 of 2 - PCV) 1981 DTaP/Tdap/Td Vaccine (1 - Tdap) 1986 Hepatitis B Screening 1993 Hemoglobin A1C 03/23/2023 09/21/2022 Lipid Panel 09/22/2023 09/21/2022 eGFR 09/22/2023 09/21/2022 Covid-19 Vaccine ( season) 2023, 07/09/2020 Influenza Vaccine (#1) 2023 Depression Screening 01/24/2024 01/23/2023, 08/29/2022, 08/29/2022 Regular Well Visit/Exam 18-64 01/24/2024 01/23/2023 Procedures Procedure Name Priority Date/Time Associated Diagnosis Comments COMPREHENSIVE METABOLIC PANEL Routine 09/21/2022 8:51 AM CDT HEMOGLOBIN A1C Routine 09/21/2022 8:51 AM CDT LIPID PANEL Routine 09/21/2022 8:51 AM CDT from Last 3 Months or Most Recently Relevant to Health Maintenance Results * (ABNORMAL) Hemoglobin A1c (09/21/2022 8:51 AM CDT) Hgb A1C 7.6(H) <5.7 % of total Hgb [facility] Comment: For someone without known diabetes, [...] 09/22/2022 4:39 AM CDT FASTING:YES FASTING: YES Jared Burciaga MD LAB BLOOD ORDERABLES Final R esult [facility] [address] [place] [address] * (ABNORMAL) Lipid panel (09/21/2022 8:51 AM [...] factors. LDL-C is now calculated using the Tiff calculation, which is a validated novel method providing better accuracy than the Friedewald equation in the estimation of LDL-C. Mitch DUNN et al. JESSY. 2013;310(19): 4616-1526 (http://education.[employer]/faq/IOA867) Chol/HDL ratio 3.2 <5.0 (calc) [facility] [...] LAB BLOOD ORDERABLES Final R esult [facility] [address] [place] [address] * (ABNORMAL) Comprehensive metabolic panel (09/21/2022 8:51 AM CDT) [facility] Glucose 176(H) 65 - 99 mg/dL [facility] Comment: ? Fasting reference interval For someone without known diabetes, a glucose value >125 mg/dL indicates that they may have diabetes and this should be confirmed with a follow-up test. BUN 11 7 - 25 mg/dL [facility] Creatinine 0.80 0.50 - 0.99 mg/dL [facility] eGFR 91 > OR = 60 mL/min/1. 73m2 [facility] Comment: The eGFR is based on the CKD-EPI 2020 equation. To calculate the new eGFR from a previous Creatinine or Cystatin C result, go to https://www.kidney.org/professionals/ kdoqi/gfr%5Fcalculator BUN/creat ratio NOT APPLICABLE 6 - 22 (calc) [facility] Sodium 136 135 - 146 mmol/L [facility] Potassium, pl 4.4 3.5 - 5.3 mmol/L [facility] Chloride 103 98 - 110 mmol/L [facility] CO2 23 20 - 32 mmol/L [facility] Calcium 9.5 8.6 - 10.2 mg/dL [facility] Protein, sr 7.4 6.1 - 8.1 g/dL [facility] Albumin 4.0 3.6 - 5.1 g/dL [facility] GLOBULIN 3.4 1.9 - 3.7 g/dL (calc) [facility] Alb/glob ratio 1.2 1.0 - 2.5 (calc) [facility] Bilirubin, total 0.4 0.2 - 1.2 mg/dL [facility] Alk phos 50 31 - 125 U/L [facility] AST 18 10 - 35 U/L [facility] ALT (SGPT) 10 6 - 29 U/L [facility] 09/21/2022 8:51 AM CDT 09/21/2022 8:52 AM CDT Narrative [facility] - 09/22/2022 4:39 AM CDT FASTING:YES FASTING: YES Jared Burciaga MD LAB BLOOD ORDERABLES Final R esult [facility] [address] [place] [address] from Last 3 Months or Most Recently Relevant to Health Maintenance [facility] Care Teams Frontend Engineer Relationship Specialty Start Date End Date Jared Burciaga MD PCP - General Internal Medicine 08/29/22
--- OUTSIDE RECORDS SUMMARY | 2024-05-21 08:48 | XMS_ITS | Referral Summary ---
Author Organization [facility] Address [address] [place] [address] Care Team Providers Care Terrazzo Layer Name Role Phone Francisca Johnson DO Primary Care Provider [phone] Source Comments [facility],non-owned Affiliates and Associated Physician Practices is amultiple site organization consisting of ambulatory clinics and hospital sitesin [place], [place], [place] and [place]. This disclosure is being madepursuant to the Care Everywhere program and may not contain all information available regarding this patient. Last updated 18.[facility] Allergies No known active allergies Medications * [...] doses. 3 tablet 02/06/2024 Active nystatin (Mycostatin) 891418 UNIT/GM ointmentIndication s:Vulvar itching,Candidal vulvitis Use with [...] 02/06/2024 12:53 PM CDT Plan of Treatment Not on file Care Teams Terrazzo Layer Relationship Specialty Start Date End Date Francisca Johnson DO [address] [place] [id number] PCP - General Family Medicine 02/06/24
== END 2024-05-21 08:31 | disposition home or self-care (01) ==
PROVIDERS: PCP Family Medicine; Visit Provider Surgery
DX: N63.11 Unspecified lump in the right breast, upper outer quadrant (principal); R92.8 Other abnormal and inconclusive findings on diagnostic imaging of breast
CPT/HCPCS: 19083; 77065; 88305; A4648